=== PATIENT | male | born 1950 | race Caucasian/White ===

== ENCOUNTER → 2016-12-14 | Outpatient (REF) | payer MEDICARE, OTHER | END | disposition home or self-care (01) | LOC: M SFHCPLAZ 09:15 | PROVIDERS: ATTEND Family Medicine | DX: L08.9 Local infection of the skin and subcutaneous tissue, unspecified (principal) | CPT/HCPCS: 11100; 88305; G0463 ==

== ENCOUNTER → 2017-03-15 | Outpatient (CLI) | payer MEDICARE, OTHER ==
[2017-03-15 08:33] LABS: BASO % 0.5 % (0.0-1.0); EOS # 0.1 K/mm3 (0.0-0.50); EOS % 0.7 % (0.0-3.0); LARGE UNSTAINED CELL # 0.1 K/mm3 (0.0-0.4); LARGE UNSTAINED CELL % 0.9 % (0.0-4.0); LYMPH # 1.3 K/mm3 (1.5-4.5); MEAN CORPUSCULAR HEMOGLOBIN 29.2 pg (27.0-33.0); MEAN CORPUSCULAR HGB CONC 31.3 g/dl (32.0-36.5); MONO # 0.6 K/mm3 (0.0-0.8); MONO % 7.6 % (0.0-5.0); NEUTROPHILS # 6.1 K/mm3 (1.8-7.7); NEUTROPHILS % 75.2 % (36.0-66.0); PLATELET COUNT, AUTOMATED 264 k/mm3 (150-450); RED CELL DISTRIBUTION WIDTH 12.3 % (11.5-14.5); WHITE BLOOD COUNT 8.1 K/mm3 (4.0-10.0)
[2017-03-15 08:59] LABS: ALBUMIN 3.6 GM/DL (3.2-5.2); ALBUMIN/GLOBULIN RATIO 1.24 (1.00-1.93); ALKALINE PHOSPHATASE 49 U/L (45-117); ALT/SGPT 27 U/L (12-78); ANION GAP 7 MEQ/L (8-16); AST/SGOT 14 U/L (15-37); BILIRUBIN,TOTAL 0.4 MG/DL (0.2-1.0); BLOOD UREA NITROGEN 24 MG/DL (7-18); CALCIUM LEVEL 9.1 MG/DL (8.8-10.2); CARBON DIOXIDE LEVEL 26 MEQ/L (21-32); CHLORIDE LEVEL 105 MEQ/L (98-107); CHOLESTEROL LEVEL 209 MG/DL (<200); CREATININE FOR GFR 1.19 MG/DL (0.70-1.30); FERRITIN 41 NG/ML (26-388); GLOMERULAR FILTRATION RATE > 60.0 (>49); GLUCOSE, FASTING 97 MG/DL (80-110); PERCENT SATURATION 29.7 % (19.7-37.4); POTASSIUM SERUM 4.6 MEQ/L (3.5-5.1); SODIUM LEVEL 138 MEQ/L (136-145); TOTAL IRON BINDING CAPACITY 364 UG/DL (250-450); TOTAL PROTEIN 6.5 GM/DL (6.4-8.2); TRIGLYCERIDES LEVEL 89 MG/DL (<150)
[2017-03-15 10:18] LABS: VITAMIN B12 LEVEL 394 PG/ML (247-911)
== END ==
LOC: M LAB 07:27
PROVIDERS: ATTEND Family Medicine
DX: N18.2 Chronic kidney disease, stage 2 (mild) (principal); E78.5 Hyperlipidemia, unspecified; Z12.5 Encounter for screening for malignant neoplasm of prostate; D50.9 Iron deficiency anemia, unspecified
CPT/HCPCS: 36415; 80053; 80061; 82550; 82607; 82728; 83550; 84443; 85025; 86140; G0103

== ENCOUNTER → 2017-06-01 | Outpatient (CLI) | payer MEDICARE, OTHER ==
[~2017-06-01] MED LIST: ASPI81TA85 PO; LISI-538 PO; MULT1TAB10 PO; PRAV80TA PO
--- NOTE | 2017-06-01 11:20 | REP ---
Chest x-ray PA and lateral: 06/01/2017 Comparison PA chest with ribs 06/15/2013, CT chest 09/22/2010. Findings. Pulmonary nodule. Previous CT showed a few tiny nodules 4 mm or less in the right lung, these would be radiographically occult. The lungs are well inflated. CP angles sharply defined. There is no lateral pleural thickening, apical scarring or pneumothorax. Heart is not grossly enlarged. Epicardial fat pad along the left heart border as on previous CT enlarges the cardiac silhouette. There is no vascular redistribution or edema. The aorta is mildly tortuous and has calcification at the arch without aneurysm. Bony thorax shows no acute compression deformity. Impression: 1. No acute cardiopulmonary change. 2. No visible pulmonary nodule, mass or acute infiltrate, radiographically. If there are other interval studies and I am not aware of it may be helpful to compare to those. For following nodules as small as described in the 2010 CT it would require a CT to accomplish that. Signed by Kem Fuchs MD 06/01/2017 06:57 P
--- NOTE | 2017-06-01 12:20 | REP ---
LEFT ELBOW, FOUR VIEWS: HISTORY: Arthritis. Postoperative changes are present in the head of the radius. There is deformity of the radial head. Two metal screws are present. There is no acute fracture or dislocation. There is narrowing of the joint space. IMPRESSION: Postoperative change as described above. Signed by Blaise Dong MD 06/01/2017 12:25 P
== END ==
LOC: M RAD 10:01
PROVIDERS: ATTEND Family Medicine
DX: R91.1 Solitary pulmonary nodule (principal); M19.022 Primary osteoarthritis, left elbow

== ENCOUNTER 2017-07-23 10:53 | Outpatient (CLI) | payer MEDICARE, OTHER ==
[~2017-07-23] VITALS: Ht 185.4 cm; Wt 81.6 kg
[2017-07-23] MEDS ORDERED: NS 1,000 ML IV ONE (11:00)
[2017-07-23] MEDS ORDERED: PROPOFOL 200 MG/20 ML VIAL As Ordered ONE (11:13)
--- NOTE | 2017-07-23 11:48 | ROOR ---
Patient Name: Travis George Procedure Date: 07/23/2017 11:30 AM Date of : 1950 Age: 66 Room: [facility] Gender: Male Note Status: Finalized Procedure: Total Colonoscopy to Cecum Indications: Colon cancer screening in patient at increased risk: Family history of 1st-degree relative with colon polyps, Last colonoscopy: 2009 Providers: Antonio Johnson MD Referring MD: Kike Cowan MD Requesting Provider: Medicines: Monitored Anesthesia Care Complications: No immediate complications. Procedure: Pre-Anesthesia Assessment: - The heart rate, respiratory rate, oxygen saturations, blood pressure, adequacy of pulmonary ventilation, and response to care were monitored throughout the procedure. The Colonoscope was introduced through the anus and advanced to the cecum, identified by appendiceal orifice and ileocecal valve. The colonoscopy was performed without difficulty. The patient tolerated the procedure well. The quality of the bowel preparation was excellent. Findings: The perianal and digital rectal examinations were normal. Non-bleeding internal hemorrhoids were found during retroflexion. The hemorrhoids were small and Grade I (internal hemorrhoids that do not prolapse). No other significant abnormalities were identified in a careful examination of the remainder of the colon. The exam was otherwise without abnormality on direct and retroflexion views. Impression: - Non-bleeding internal hemorrhoids. - The examination was otherwise normal on direct and retroflexion views. - No specimens collected. - The exam was otherwise normal to the cecum. Recommendation: - Patient has a contact number available for emergencies. The signs and symptoms of potential delayed complications were discussed with the patient. Return to normal activities tomorrow. Written discharge instructions were provided to the patient. - High fiber diet. - Discharge patient to home. - Continue present medications. - Repeat colonoscopy in 5 years for screening purposes. - Return to referring physician. - The findings and recommendations were discussed with the patient's family. Antonio Johnson MD Antonio Johnson MD 07/23/2017 11:48:21 AM This report has been signed electronically. Number of Addenda: 0 Note Initiated On: 07/23/2017 11:30 AM Estimated Blood Loss: Estimated blood loss: none.
[2017-07-23 12:15] VITALS: BP 117/82
== END 2017-07-23 12:21 | disposition home or self-care (01) ==
LOC: M OPP 10:53
PROVIDERS: ATTEND Internal Medicine Gastroenterology
DX: Z12.11 Encounter for screening for malignant neoplasm of colon (principal); Z83.71 Family history of colonic polyps; K64.0 First degree hemorrhoids; K90.0 Celiac disease; I10 Essential (primary) hypertension; E78.5 Hyperlipidemia, unspecified; M19.90 Unspecified osteoarthritis, unspecified site; M25.60 Stiffness of unspecified joint, not elsewhere classified; N40.1 Benign prostatic hyperplasia with lower urinary tract symptoms; Z88.0 Allergy status to penicillin; Z79.82 Long term (current) use of aspirin; Z79.899 Other long term (current) drug therapy; Z80.0 Family history of malignant neoplasm of digestive organs

== ENCOUNTER → 2017-09-15 | Outpatient (CLI) | payer MEDICARE, OTHER ==
[2017-09-15 08:07] LABS: BASO % 0.5 % (0.0-1.0); EOS % 0.7 % (0.0-3.0); IMMATURE GRANULOCYTE % 0.5 % (0-0); LYMPH # 1.4 10^3/uL (1.5-4.5); LYMPH % 24.9 % (24.0-44.0); MEAN CORPUSCULAR HEMOGLOBIN 30.5 pg (27.0-33.0); MEAN CORPUSCULAR HGB CONC 33.3 g/dl (32.0-36.5); MEAN CORPUSCULAR VOLUME 91.9 fl (80.0-96.0); MONO # 0.5 10^3/uL (0.0-0.8); MONO % 9.8 % (0.0-5.0); NEUTROPHILS # 3.5 10^3/uL (1.8-7.7); NEUTROPHILS % 63.6 % (36.0-66.0); PLATELET COUNT, AUTOMATED 252 10^3/uL (150-450); RED CELL DISTRIBUTION WIDTH 12.3 % (11.5-14.5); WHITE BLOOD COUNT 5.5 10^3/uL (4.0-10.0)
[2017-09-15 08:39] LABS: ALBUMIN 3.7 GM/DL (3.2-5.2); ALBUMIN/GLOBULIN RATIO 1.42 (1.00-1.93); ALKALINE PHOSPHATASE 42 U/L (45-117); ALT/SGPT 28 U/L (12-78); ANION GAP 5 MEQ/L (8-16); AST/SGOT 16 U/L (7-37); BILIRUBIN,TOTAL 0.3 MG/DL (0.2-1.0); BLOOD UREA NITROGEN 25 MG/DL (7-18); CALCIUM LEVEL 9.1 MG/DL (8.8-10.2); CARBON DIOXIDE LEVEL 27 MEQ/L (21-32); CHLORIDE LEVEL 107 MEQ/L (98-107); CREATININE FOR GFR 1.22 MG/DL (0.70-1.30); GLOMERULAR FILTRATION RATE > 60.0 (>49); GLUCOSE, FASTING 94 MG/DL (80-110); POTASSIUM SERUM 4.7 MEQ/L (3.5-5.1); SODIUM LEVEL 139 MEQ/L (136-145); TOTAL PROTEIN 6.3 GM/DL (6.4-8.2)
== END ==
LOC: M LAB 07:20
PROVIDERS: ATTEND Family Medicine
DX: N18.2 Chronic kidney disease, stage 2 (mild) (principal); R73.01 Impaired fasting glucose; E55.9 Vitamin D deficiency, unspecified

== ENCOUNTER 2017-11-15 07:38 | Emergency (ER) | payer MEDICARE, OTHER ==
[2017-11-15 08:52] LABS: BASO % 0.2 % (0.0-1.0); EOS # 0.1 10^3/uL (0.0-0.50); HEMATOCRIT 45.4 % (42.0-52.0); HEMOGLOBIN 14.9 g/dl (14.0-18.0); IMMATURE GRANULOCYTE % 0.4 % (0-0); LYMPH # 1.6 10^3/uL (1.5-4.5); LYMPH % 19.4 % (24.0-44.0); MEAN CORPUSCULAR HGB CONC 32.8 g/dl (32.0-36.5); MEAN CORPUSCULAR VOLUME 91.5 fl (80.0-96.0); MONO # 0.8 10^3/uL (0.0-0.8); MONO % 9.4 % (0.0-5.0); NEUTROPHILS # 5.7 10^3/uL (1.8-7.7); NEUTROPHILS % 69.6 % (36.0-66.0); PLATELET COUNT, AUTOMATED 248 10^3/uL (150-450); RED BLOOD COUNT 4.96 10^6/uL (4.30-6.10); RED CELL DISTRIBUTION WIDTH 12.5 % (11.5-14.5); WHITE BLOOD COUNT 8.2 10^3/uL (4.0-10.0)
[2017-11-15 09:05] LABS: INR 0.94; PROTHROMBIN TIME 12.7 SECONDS (12.4-14.5)
[2017-11-15 09:06] LABS: PARTIAL THROMBOPLASTIN TIME 24.5 SECONDS (26.8-37.9)
[2017-11-15 09:23] LABS: ANION GAP 6 MEQ/L (8-16); BLOOD UREA NITROGEN 26 MG/DL (7-18); CALCIUM LEVEL 9.3 MG/DL (8.8-10.2); CARBON DIOXIDE LEVEL 28 MEQ/L (21-32); CHLORIDE LEVEL 106 MEQ/L (98-107); CREATININE FOR GFR 1.13 MG/DL (0.70-1.30); GLOMERULAR FILTRATION RATE > 60.0 (>49); GLUCOSE, FASTING 98 MG/DL (80-110); SODIUM LEVEL 140 MEQ/L (136-145)
== END 2017-11-15 13:57 | disposition home or self-care (01) ==
LOC: M ED 07:38
DX: R27.0 Ataxia, unspecified (principal); I10 Essential (primary) hypertension; K90.0 Celiac disease; N42.9 Disorder of prostate, unspecified; Z79.899 Other long term (current) drug therapy; Z79.82 Long term (current) use of aspirin; Z88.0 Allergy status to penicillin
CPT/HCPCS: 70551

== ENCOUNTER → 2018-03-18 | Outpatient (CLI) | payer MEDICARE, OTHER ==
[2018-03-18 08:03] LABS: BASO % 0.4 % (0.0-1.0); EOS # 0.1 10^3/uL (0.0-0.50); EOS % 0.6 % (0.0-3.0); HEMATOCRIT 43.9 % (42.0-52.0); HEMOGLOBIN 14.5 g/dl (13.5-17.5); IMMATURE GRANULOCYTE % 0.6 % (0-3.0); LYMPH # 1.2 10^3/uL (1.5-4.5); LYMPH % 13.3 % (24.0-44.0); MEAN CORPUSCULAR HEMOGLOBIN 30.1 pg (27.0-33.0); MEAN CORPUSCULAR VOLUME 91.1 fl (80.0-96.0); MONO # 0.8 10^3/uL (0.0-0.8); MONO % 8.8 % (0.0-5.0); NEUTROPHILS # 6.9 10^3/uL (1.8-7.7); NEUTROPHILS % 76.3 % (36.0-66.0); PLATELET COUNT, AUTOMATED 231 10^3/uL (150-450); RED BLOOD COUNT 4.82 10^6/uL (4.30-6.10); RED CELL DISTRIBUTION WIDTH 12.3 % (11.5-14.5); WHITE BLOOD COUNT 9.1 10^3/uL (4.0-10.0)
[2018-03-18 08:07] LABS: HEMATOCRIT 43.9 % (42.0-52.0)
[2018-03-18 08:35] LABS: ALBUMIN 3.7 GM/DL (3.2-5.2); ALBUMIN/GLOBULIN RATIO 1.23 (1.00-1.93); ALKALINE PHOSPHATASE 49 U/L (45-117); ALT/SGPT 26 U/L (12-78); ANION GAP 6 MEQ/L (8-16); AST/SGOT 19 U/L (7-37); BILIRUBIN,TOTAL 0.3 MG/DL (0.2-1.0); BLOOD UREA NITROGEN 32 MG/DL (7-18); CALCIUM LEVEL 8.7 MG/DL (8.8-10.2); CARBON DIOXIDE LEVEL 26 MEQ/L (21-32); CHLORIDE LEVEL 109 MEQ/L (98-107); FERRITIN 35 NG/ML (26-388); GLOMERULAR FILTRATION RATE > 60.0 (>49); GLUCOSE, FASTING 102 MG/DL (70-100); IRON (FE) 76 UG/DL (65-175); PERCENT SATURATION 20.9 % (19.7-50.0); POTASSIUM SERUM 5.1 MEQ/L (3.5-5.1); SODIUM LEVEL 141 MEQ/L (136-145); TOTAL IRON BINDING CAPACITY 364 UG/DL (250-450); TOTAL PROTEIN 6.7 GM/DL (6.4-8.2)
[2018-03-18 11:07] LABS: VITAMIN B12 LEVEL 454 PG/ML (247-911)
[2018-03-18 11:50] LABS: ESTIMATED AVERAGE GLUCOSE 134 MG/DL (60-110); HEMOGLOBIN A1c 6.3 %
[2018-03-18 12:05] LABS: PRETREATED FOLATE FOR RBCFOL 16.7 NG/ML; RBC FOLATE 798.9 NG/ML (280-791)
[2018-03-19 14:10] LABS: INSULIN LEVEL 10.2 uIU/mL (2.6-24.9)
[2018-03-22 13:21] LABS: ALBUMIN 4.27 GM/DL (3.29-5.55); ALBUMIN % 63.7 % (55.8-66.1); ALPHA-1-GLOBULIN % 2.8 % (2.9-4.9); ALPHA-1-GLOBULINS 0.19 GM/DL (0.17-0.41); ALPHA-2-GLOBULINS 0.67 GM/DL (0.42-0.99); BETA-1-GLOBULINS % 6.3 % (4.7-7.2); BETA-2-GLOBULINS % 4.8 % (3.2-6.5); GAMMA GLOBULIN % 12.4 % (11.1-18.8)
[2018-03-22 13:22] LABS: BETA-1-GLOBULINS 0.42 GM/DL (0.28-0.60); BETA-2-GLOBULINS 0.32 GM/DL (0.19-0.55); GAMMA GLOBULINS 0.83 GM/DL (0.65-1.58)
== END ==
LOC: M LAB 07:30
DX: N18.2 Chronic kidney disease, stage 2 (mild) (principal); R73.01 Impaired fasting glucose; K90.0 Celiac disease
CPT/HCPCS: 83525

== ENCOUNTER → 2018-08-17 | Outpatient (CLI) | payer MEDICARE, OTHER ==
[2018-08-17 08:34] LABS: ESTIMATED AVERAGE GLUCOSE 120 MG/DL (60-110); HEMOGLOBIN A1c 5.8 %
[2018-08-17 08:35] LABS: BASO % 0.3 % (0.0-1.0); EOS # 0.1 10^3/uL (0.0-0.50); EOS % 0.6 % (0.0-3.0); HEMATOCRIT 42.2 % (42.0-52.0); HEMOGLOBIN 13.9 g/dl (13.5-17.5); IMMATURE GRANULOCYTE % 0.3 % (0-3.0); LYMPH # 1.3 10^3/uL (1.5-4.5); LYMPH % 14.6 % (24.0-44.0); MEAN CORPUSCULAR HEMOGLOBIN 30.2 pg (27.0-33.0); MEAN CORPUSCULAR HGB CONC 32.9 g/dl (32.0-36.5); MEAN CORPUSCULAR VOLUME 91.7 fl (80.0-96.0); MONO # 0.8 10^3/uL (0.0-0.8); MONO % 9.4 % (0.0-5.0); NEUTROPHILS # 6.7 10^3/uL (1.8-7.7); NEUTROPHILS % 74.8 % (36.0-66.0); PLATELET COUNT, AUTOMATED 253 10^3/uL (150-450); RED CELL DISTRIBUTION WIDTH 12.5 % (11.5-14.5); RETIC HEMOGLOBIN EQUIVALENT 34.9 pg (24-36); RETICULOCYTE # 69.9 10^9/L (17-77); RETICULOCYTE % 1.5 % (0.5-1.5)
[2018-08-17 08:42] LABS: ALKALINE PHOSPHATASE 43 U/L (45-117); ALT/SGPT 26 U/L (12-78); ANION GAP 5 MEQ/L (8-16); AST/SGOT 17 U/L (7-37); BLOOD UREA NITROGEN 31 MG/DL (7-18); CALCIUM LEVEL 8.7 MG/DL (8.8-10.2); CARBON DIOXIDE LEVEL 28 MEQ/L (21-32); CHLORIDE LEVEL 108 MEQ/L (98-107); CPK CREATINE PHOSPHOKINASE 116 U/L (39-308); CREATININE FOR GFR 1.13 MG/DL (0.70-1.30); GLOMERULAR FILTRATION RATE > 60.0 (>49); GLUCOSE, FASTING 101 MG/DL (70-100); POTASSIUM SERUM 5.1 MEQ/L (3.5-5.1); SODIUM LEVEL 141 MEQ/L (136-145)
[2018-08-17 08:43] LABS: ALBUMIN 3.7 GM/DL (3.2-5.2); ALBUMIN/GLOBULIN RATIO 1.37 (1.00-1.93); BILIRUBIN,TOTAL 0.3 MG/DL (0.2-1.0); C REACTIVE PROTEIN QUANTITATIV < 0.30 MG/DL (0.00-0.30); MAGNESIUM LEVEL 2.2 MG/DL (1.8-2.4); PSA SCREENING 0.21 NG/ML (< 4.0); TOTAL PROTEIN 6.4 GM/DL (6.4-8.2)
[2018-08-18 15:46] LABS: INSULIN LEVEL 13.5 uIU/mL (2.6-24.9)
== END ==
LOC: M LAB 07:34
DX: N18.2 Chronic kidney disease, stage 2 (mild) (principal); Z79.899 Other long term (current) drug therapy; R73.01 Impaired fasting glucose; Z12.5 Encounter for screening for malignant neoplasm of prostate
CPT/HCPCS: 82550

== ENCOUNTER → 2019-08-14 | Outpatient (CLI) | payer MEDICARE, OTHER ==
[2019-08-14 08:13] LABS: BASO % 0.6 % (0.0-1.0); EOS % 0.6 % (0.0-3.0); HEMOGLOBIN 14.2 g/dl (13.5-17.5); LYMPH # 1.1 10^3/uL (1.5-5.0); LYMPH % 15.4 % (24.0-44.0); MEAN CORPUSCULAR HEMOGLOBIN 30.5 pg (27.0-33.0); MEAN CORPUSCULAR HGB CONC 32.3 g/dl (32.0-36.5); MEAN CORPUSCULAR VOLUME 94.4 fl (80.0-96.0); MONO # 0.6 10^3/uL (0.0-0.8); MONO % 8.6 % (0.0-5.0); NEUTROPHILS # 5.4 10^3/uL (1.5-8.5); NEUTROPHILS % 74.4 % (36.0-66.0); PLATELET COUNT, AUTOMATED 265 10^3/uL (150-450); RED BLOOD COUNT 4.66 10^6/uL (4.30-6.10); WHITE BLOOD COUNT 7.2 10^3/uL (4.0-10.0)
[2019-08-14 08:44] LABS: ALBUMIN 3.7 GM/DL (3.2-5.2); ALT/SGPT 26 U/L (12-78); BILIRUBIN,TOTAL 0.3 MG/DL (0.2-1.0); BLOOD UREA NITROGEN 21 MG/DL (7-18); CALCIUM LEVEL 9.2 MG/DL (8.8-10.2); CARBON DIOXIDE LEVEL 27 MEQ/L (21-32); CHLORIDE LEVEL 107 MEQ/L (98-107); CREATININE FOR GFR 1.24 MG/DL (0.70-1.30); FREE T4 0.86 NG/DL (0.76-1.46); GLOMERULAR FILTRATION RATE > 60.0 (>42); GLUCOSE, FASTING 103 MG/DL (70-100); POTASSIUM SERUM 4.7 MEQ/L (3.5-5.1); SODIUM LEVEL 139 MEQ/L (136-145)
== END ==
LOC: M LAB 07:25
PROVIDERS: ATTEND Family Medicine
DX: Z12.5 Encounter for screening for malignant neoplasm of prostate (principal); K90.0 Celiac disease; E78.5 Hyperlipidemia, unspecified; R73.01 Impaired fasting glucose
CPT/HCPCS: 36415; 80053; 83036; 83516; 84439; 84443; 85025; 85046; G0103

== ENCOUNTER → 2020-01-01 | Outpatient (CLI) | payer MEDICARE, OTHER ==
[2020-01-01 08:18] LABS: APPEARANCE, URINE CLEAR (CLEAR); BACTERIA, URINE AUTO NEGATIVE (NEGATIVE); BASO # 0.1 10^3/uL (0.0-0.2); BASO % 0.8 % (0.0-1.0); BILIRUBIN, URINE AUTO NEGATIVE (NEGATIVE); BLOOD, URINE BLOOD NEGATIVE (NEGATIVE); COLOR, URINE YELLOW (YELLOW); EOS # 0.1 10^3/uL (0.0-0.5); EOS % 1.3 % (0.0-3.0); GLUCOSE, URINE (UA) AUTO NEGATIVE (NEGATIVE); HEMATOCRIT 43.6 % (42.0-52.0); HEMOGLOBIN 14.1 g/dl (13.5-17.5); KETONE, URINE AUTO NEGATIVE (NEGATIVE); LEUKOCYTE ESTERASE, URINE AUTO NEGATIVE (NEGATIVE); LYMPH # 1.7 10^3/uL (1.5-5.0); LYMPH % 23.1 % (24.0-44.0); MEAN CORPUSCULAR HGB CONC 32.3 g/dl (32.0-36.5); MEAN CORPUSCULAR VOLUME 92.8 fl (80.0-96.0); MONO # 0.8 10^3/uL (0.0-0.8); MUCUS, URINE SMALL (NEGATIVE); NEUTROPHILS # 4.5 10^3/uL (1.5-8.5); NEUTROPHILS % 63.2 % (36.0-66.0); NITRITE, URINE AUTO NEGATIVE (NEGATIVE); PLATELET COUNT, AUTOMATED 270 10^3/uL (150-450); PROTEIN, URINE AUTO NEGATIVE (NEGATIVE); RBC, URINE AUTO 10 /HPF (0-3); SPECIFIC GRAVITY URINE AUTO 1.017 (1.002-1.035); SQUAMOUS EPITHELIAL CELL UR AU 0 /HPF (0-6); UROBILINOGEN, URINE AUTO 0.2 mg/dL (0.0-2.0); WBC, URINE AUTO 1 /HPF (0-3); WHITE BLOOD COUNT 7.2 10^3/uL (4.0-10.0)
[2020-01-01 08:47] LABS: ALBUMIN 3.7 GM/DL (3.2-5.2); ALT/SGPT 27 U/L (12-78); BILIRUBIN,TOTAL 0.4 MG/DL (0.2-1.0); BLOOD UREA NITROGEN 24 MG/DL (7-18); CALCIUM LEVEL 9.2 MG/DL (8.8-10.2); CARBON DIOXIDE LEVEL 29 MEQ/L (21-32); CHLORIDE LEVEL 107 MEQ/L (98-107); CREATININE FOR GFR 1.15 MG/DL (0.70-1.30); GLOMERULAR FILTRATION RATE > 60.0 (>42); GLUCOSE, FASTING 102 MG/DL (70-100); POTASSIUM SERUM 5.4 MEQ/L (3.5-5.1); SODIUM LEVEL 139 MEQ/L (136-145); TOTAL PROTEIN 6.7 GM/DL (6.4-8.2)
[2020-01-01 08:56] LABS: MALB URINE SIEMENS 7.2 MG/L; MAU/CREAT RATIO 7.1 MCG/MG (0.0-30.0)
[2020-01-02 11:37] LABS: ALBUMIN 4.13 GM/DL (3.29-5.55); ALBUMIN % 61.7 % (55.8-66.1); ALPHA-1-GLOBULIN % 3.4 % (2.9-4.9); ALPHA-1-GLOBULINS 0.23 GM/DL (0.17-0.41); ALPHA-2-GLOBULINS 0.72 GM/DL (0.42-0.99); ALPHA-2-GLOBULINS % 10.7 % (7.1-11.8); BETA-1-GLOBULINS 0.43 GM/DL (0.28-0.60); BETA-1-GLOBULINS % 6.4 % (4.7-7.2); BETA-2-GLOBULINS 0.32 GM/DL (0.19-0.55); BETA-2-GLOBULINS % 4.8 % (3.2-6.5); GAMMA GLOBULINS 0.87 GM/DL (0.65-1.58)
== END ==
LOC: M LAB 07:30
PROVIDERS: ATTEND Family Medicine
DX: D75.89 Other specified diseases of blood and blood-forming organs (principal); I10 Essential (primary) hypertension; R73.01 Impaired fasting glucose

== ENCOUNTER → 2020-05-14 | Outpatient (CLI) | payer MEDICARE, OTHER ==
[~2020-05-14] MED LIST changes: -ASPI81TA85 PO; +ASPI81TA86 PO
[2020-05-14 08:17] LABS: ALBUMIN 3.6 GM/DL (3.2-5.2); ALT/SGPT 23 U/L (12-78); BILIRUBIN,TOTAL 0.3 MG/DL (0.2-1.0); BLOOD UREA NITROGEN 29 MG/DL (7-18); C REACTIVE PROTEIN QUANTITATIV < 0.30 MG/DL (0.00-0.30); CARBON DIOXIDE LEVEL 26 MEQ/L (21-32); CHLORIDE LEVEL 109 MEQ/L (98-107); CHOLESTEROL LEVEL 176 MG/DL (<200); CREATININE FOR GFR 1.11 MG/DL (0.70-1.30); FREE T4 1.01 NG/DL (0.76-1.46); GLOMERULAR FILTRATION RATE > 60.0 (>42); GLUCOSE, FASTING 95 MG/DL (70-100); HDL CHOLESTEROL 64 MG/DL (>40); LDL CHOLESTEROL 102 MG/DL (<100); NON-HDL-C 112 MG/DL; POTASSIUM SERUM 4.8 MEQ/L (3.5-5.1); SODIUM LEVEL 140 MEQ/L (136-145); THYROID STIMULATING HORMONE 0.677 uIU/ML (0.358-3.740); TOTAL PROTEIN 6.8 GM/DL (6.4-8.2); TRIGLYCERIDES LEVEL 51 MG/DL (<150)
== END ==
LOC: M LAB 06:58
PROVIDERS: ATTEND Family Medicine
DX: Z12.5 Encounter for screening for malignant neoplasm of prostate (principal); R73.01 Impaired fasting glucose; E78.5 Hyperlipidemia, unspecified
CPT/HCPCS: 36415; 80053; 80061; 83525; 84439; 84443; 86140; G0103

== ENCOUNTER → 2020-11-04 | Outpatient (CLI) | payer MEDICARE, OTHER ==
[2020-11-04 09:09] LABS: BASO # 0.1 10^3/uL (0.0-0.2); BASO % 0.8 % (0.0-1.0); EOS # 0.1 10^3/uL (0.0-0.5); EOS % 0.9 % (0.0-3.0); HEMATOCRIT 43.7 % (42.0-52.0); HEMOGLOBIN 13.9 g/dl (13.5-17.5); LYMPH # 1.4 10^3/uL (1.5-5.0); LYMPH % 20.9 % (24.0-44.0); MEAN CORPUSCULAR HEMOGLOBIN 29.1 pg (27.0-33.0); MEAN CORPUSCULAR HGB CONC 31.8 g/dl (32.0-36.5); MEAN CORPUSCULAR VOLUME 91.6 fl (80.0-96.0); MONO # 0.7 10^3/uL (0.0-0.8); MONO % 10.4 % (0.0-5.0); NEUTROPHILS # 4.4 10^3/uL (1.5-8.5); NEUTROPHILS % 66.5 % (36.0-66.0); PLATELET COUNT, AUTOMATED 270 10^3/uL (150-450); RED BLOOD COUNT 4.77 10^6/uL (4.30-6.10); WHITE BLOOD COUNT 6.6 10^3/uL (4.0-10.0)
[2020-11-04 09:19] LABS: ALBUMIN 3.7 GM/DL (3.2-5.2); ALT/SGPT 26 U/L (12-78); BILIRUBIN,TOTAL 0.4 MG/DL (0.2-1.0); BLOOD UREA NITROGEN 21 MG/DL (7-18); CARBON DIOXIDE LEVEL 28 MEQ/L (21-32); CHLORIDE LEVEL 106 MEQ/L (98-107); CREATININE FOR GFR 1.24 MG/DL (0.70-1.30); GLOMERULAR FILTRATION RATE > 60.0 (>42); GLUCOSE, FASTING 93 MG/DL (70-100); POTASSIUM SERUM 4.7 MEQ/L (3.5-5.1); SODIUM LEVEL 139 MEQ/L (136-145); TOTAL PROTEIN 6.7 GM/DL (6.4-8.2)
[2020-11-04 09:27] LABS: CREATININE, URINE 87.2 MG/DL; MALB URINE SIEMENS 6.9 MG/L; MAU/CREAT RATIO 7.9 MCG/MG (0.0-30.0)
[2020-11-04 10:36] LABS: PTH INTACT 28.6 PG/ML (18.5-88.0); TOTAL 25(OH) VITAMIN D 26.4 NG/ML (30.0-100.0)
[2020-11-04 10:37] LABS: VITAMIN B12 LEVEL 442 PG/ML (247-911)
[2020-11-04 10:58] LABS: HEMOGLOBIN A1c 5.5 %
== END ==
LOC: M LAB 07:23
PROVIDERS: ATTEND Family Medicine
DX: R73.01 Impaired fasting glucose (principal); N18.2 Chronic kidney disease, stage 2 (mild); D75.89 Other specified diseases of blood and blood-forming organs; Z79.899 Other long term (current) drug therapy

== ENCOUNTER → 2021-04-14 | Outpatient (CLI) | payer MEDICARE, OTHER ==
[~2021-04-14] MED LIST changes: -LISI-538 PO; +LISI20TA33 PO
[2021-04-14 10:11] LABS: HEMOGLOBIN A1c 5.7 %
[2021-04-14 10:12] LABS: ALBUMIN 3.8 GM/DL (3.2-5.2); ALT/SGPT 28 U/L (12-78); BILIRUBIN,TOTAL 0.3 MG/DL (0.2-1.0); BLOOD UREA NITROGEN 27 MG/DL (7-18); CALCIUM LEVEL 9.7 MG/DL (8.8-10.2); CARBON DIOXIDE LEVEL 26 MEQ/L (21-32); CHLORIDE LEVEL 106 MEQ/L (98-107); CHOLESTEROL LEVEL 193 MG/DL (<200); CHOLESTEROL RISK RATIO 3.112 (<5); CPK CREATINE PHOSPHOKINASE 86 U/L (39-308); CREATININE FOR GFR 1.25 MG/DL (0.70-1.30); FREE T4 1.05 NG/DL (0.76-1.46); GLOMERULAR FILTRATION RATE > 60.0 (>42); GLUCOSE, FASTING 85 MG/DL (70-100); HDL CHOLESTEROL 62 MG/DL (>40); LDL CHOLESTEROL 119 MG/DL (<100); NON-HDL-C 131 MG/DL; POTASSIUM SERUM 5.2 MEQ/L (3.5-5.1); SODIUM LEVEL 137 MEQ/L (136-145); THYROID STIMULATING HORMONE 0.597 uIU/ML (0.358-3.740); TOTAL PROTEIN 6.8 GM/DL (6.4-8.2); TRIGLYCERIDES LEVEL 59 MG/DL (<150)
== END ==
LOC: M LAB 08:30
PROVIDERS: ATTEND Family Medicine
DX: R73.01 Impaired fasting glucose (principal); E78.5 Hyperlipidemia, unspecified; Z12.5 Encounter for screening for malignant neoplasm of prostate
CPT/HCPCS: 36415; 80053; 80061; 82550; 83036; 83525; 84439; 84443; 86140; G0103

== ENCOUNTER → 2021-09-01 | Outpatient (CLI) | payer MEDICARE, OTHER ==
[2021-09-01 12:09] LABS: BASO # 0.1 10^3/uL (0.0-0.2); BASO % 0.7 % (0.0-1.0); EOS # 0.1 10^3/uL (0.0-0.5); EOS % 1.6 % (0.0-3.0); HEMATOCRIT 43.8 % (42.0-52.0); HEMOGLOBIN 14.4 g/dl (13.5-17.5); LYMPH # 1.7 10^3/uL (1.5-5.0); LYMPH % 23.7 % (24.0-44.0); MEAN CORPUSCULAR HEMOGLOBIN 30.8 pg (27.0-33.0); MEAN CORPUSCULAR HGB CONC 32.9 g/dl (32.0-36.5); MEAN CORPUSCULAR VOLUME 93.8 fl (80.0-96.0); MONO # 0.8 10^3/uL (0.0-0.8); MONO % 11.3 % (2.0-8.0); NEUTROPHILS # 4.4 10^3/uL (1.5-8.5); NEUTROPHILS % 62.4 % (36.0-66.0); PLATELET COUNT, AUTOMATED 254 10^3/uL (150-450); RED BLOOD COUNT 4.67 10^6/uL (4.30-6.10)
[2021-09-01 12:23] LABS: INR 0.96; PARTIAL THROMBOPLASTIN TIME 24.5 SECONDS (25.9-37.0); PROTHROMBIN TIME 13.2 SECONDS (12.7-14.5)
[2021-09-01 12:46] LABS: ALBUMIN 3.7 GM/DL (3.2-5.2); BILIRUBIN,TOTAL 0.2 MG/DL (0.2-1.0); CALCIUM LEVEL 9.4 MG/DL (8.8-10.2); CREATININE FOR GFR 1.3 MG/DL (0.70-1.30); GLOMERULAR FILTRATION RATE 57.8 (>42); POTASSIUM SERUM 4.8 MEQ/L (3.5-5.1)
[2021-09-01 12:51] LABS: MAU/CREAT RATIO 7.6 MCG/MG (0.0-30.0)
[2021-09-01 12:54] LABS: TOTAL 25(OH) VITAMIN D 37.8 NG/ML (30.0-100.0)
[2021-09-01 12:55] LABS: PTH INTACT 51.2 PG/ML (18.5-88.0)
[2021-09-01 13:12] LABS: HEMOGLOBIN A1c 5.7 %
== END ==
LOC: M LAB 11:31
PROVIDERS: ATTEND Family Medicine
DX: E55.9 Vitamin D deficiency, unspecified (principal); D75.89 Other specified diseases of blood and blood-forming organs; R73.01 Impaired fasting glucose; K90.0 Celiac disease

== ENCOUNTER → 2021-09-13 | Outpatient (CLI) | payer MEDICARE, OTHER ==
[~2021-09-13] MED LIST changes: +BAYE81TA10 PO; +D3 H2000 PO; +METF-838 PO; +PRAV80TA2 PO
== END ==
LOC: M LABSMTC 09:59
PROVIDERS: ATTEND Anesthesiology
DX: Z01.812 Encounter for preprocedural laboratory examination (principal); Z20.822 Contact with and (suspected) exposure to COVID-19

== ENCOUNTER 2021-09-18 06:54 | Day surgery (SDC) | payer MEDICARE, OTHER ==
[~2021-09-18] VITALS: Ht 185.4 cm; Wt 81.2 kg
[~2021-09-18 06:54] MED LIST changes: +CYCLOPENTOLATE 1% OPHTH SOLN 2 ML BTL OS SCH; +DUOVISC (0.50ML VISCOAT/0.85ML PROVISC) OPHTH KIT As Ordered ONE; +FLURBIPROFEN 0.03% OPHTH SOLN 2.5 ML OS SCH; +LIDOCAINE 1% SDV 5ML VIAL As Ordered ONE; +MAXITROL OPHTH SUSP 5 ML As Ordered ONE; +PHENYLEPHRINE 2.5% OPHTH SOL 2ML OS SCH; +TETRACAINE 0.5% OPHTH SOLN 4ML OS SCH; +TOBRADEX OPHTH SUSP 2.5 ML As Ordered ONE
--- OUTSIDE RECORDS SUMMARY | 2021-09-18 06:58 | CCD ---
Author Author [facility] Organization [facility] Address Unknown Phone Unavailable Care Team Providers Care Team Primary Care Physician Name Role Phone Kike Cowan Unavailable PROBLEMS Type Condition ICD9-CM Code [id number] Code Onset Dates Condition S tatus W/U Status Risk SNOMED Code Notes Problem ED (erectile dysfunction) N52.9 Active confirmed 882338242 Problem CKD (chronic kidney disease) stage 2, GFR 60-89 ml/min N18.2 Active confirmed 276093999 Problem Hypertension I10 Active confirmed 9097905 3 Problem Hyperlipidemia E78.5 Active confirmed 90411 004 Problem Colon cancer screening Z12.11 Active confirmed 807571841 Problem FH: colon cancer Z80.0 Active confirmed 312 422620 Problem Celiac disease K90.0 Active confirmed 41861 1005 Problem Macrocytosis D75.89 Active confirmed 0427003 00 Problem IFG (impaired fasting glucose) R73.01 Active confir med 724596150 Problem Prostate cancer screening Z12.5 Active confirmed 959253130 Problem Vitamin D deficiency E55.9 Active confirmed 48299900 Problem Pulmonary nodule R91.1 Active confirmed 309 819386 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 Active confirmed 439 838280 ALLERGIES Allergen (clinical drug ingredient) Drug/Non Drug Allergy do cumented on EMR Reaction Allergy Type Onset Date Status Penicillin (For Allergies Use Only) Nausea/Vomiting Drug A llergy Active ENCOUNTERS from 1950 to 2021-09-05 Encounter Location Date Provider Diagnosis [facility] [phone] [place] [address] Sep, Kike Cowan Macrocytosis D75.89 ; Preope rative clearance Z01.818 ; IFG (impaired fasting glucose) R73.01 ; CKD (chronic kidney disease) stage 2, GFR 60-89 ml/min N18.2 ; Pulmonary nodule R91.1 ; 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 ; Vitamin D deficiency E55.9 ; Hyperlipidemia E78.5 ; FH: colon cancer Z80.0 ; Hypertension I10 ; ED (erectile dysfunction) N52.9 ; Celiac disease K90.0 ; Prostate cancer screening Z12.5 and Colon cancer screening Z12.11 IMMUNIZATIONS Vaccine Route Administration Date Status Influenza 18 yrs & older Flublok IM Intramuscular Aug 17, 2019 Administered Influenza 18 yrs & older Flublok IM Intramuscular Aug 23, 2018 Administered Influenza (High Dose 65 & up) IM Intramuscular Oct 13, 2016 A dministered Pneumococcal 0.5mL Prevnar 13 IM Intramuscular Sep 20, 2017 A dministered SOCIAL HISTORY Tobacco Use: Social History Observation Description Date Details (start date - stop date) Never Smoker Sex Assigned At : Social History Observation Description Sex Assigned At Unknown Education: Question Answer Notes Level of Education: College Audit Question Answer Notes Total Score: 3 Interpretation: Alcohol Education Language: Question Answer Notes Languages spoken: Faroese Church: Question Answer Notes Church No congregation beliefs that would impact health care. Sexual Hx: Question Answer Notes Had sex in the last 12 months (vaginal, oral, or anal)? Yes Have you ever had an STD? No with Women only Use protection? No Drug and Alcohol Question Answer Notes Total Score: 0 Interpretation: No problems reported Alcohol Screening: Question Answer Notes Did you have a drink containing alcohol in the past year? Ye s Points 3 Interpretation Negative How often did you have six or more drinks on one occas ion in the past year? Less than monthly (1 point) How many drinks did you have on a typica l day when you were drinking in the past year? 3 or 4 (1 point) How often did you have a drink containing alcohol in t he past year? Monthly or less (1 point) Tobacco Use: Question Answer Notes Are you a: never smoker REASON FOR REFERRAL No Information VITAL SIGNS Weight 177.6 lbs Sep, Weight-kg 80.56 kg Sep, Height 73 in Sep, BMI 23.43 kg/m2 Sep, Heart Rate 74 /min Sep, Respiratory Rate 18 /min Sep, Temperature 98.2 degrees Fahrenheit Sep, Oximetry 98% Sep, Blood pressure systolic 120 mm Hg Sep, Blood pressure diastolic 68 mm Hg Sep, MEDICATIONS Medication SIG (Take, Route, Frequency, Duration) Notes Start Da te End Date Status metFORMIN HCl ER 500 mg 2 tablets Orally every morning Active Multivitamins OTC 1 tablet Orally Once a day Active Cholecalciferol 50 MCG (1999) 1 capsule Orally Once a day for 90 day(s) Active Aspir-81 81 MG 1 tablet Orally Once a day Active Lisinopril 20 mg 1 tablet Orally Once a day for 90 day(s) Active Pravastatin Sodium 80 mg TAKE 1 TABLET AT BEDTIME Active metFORMIN HCl ER 500 MG 2 tablets Orally every morning for 90 day(s) Active Pravastatin Sodium 80 MG TAKE 1 TABLET AT BEDTIME Active PROCEDURES from 1950 to 2021-09-05 Procedure Date Ordered Result Body Site ELECTROCARDIOGRAM, COMPLETE EKG 2021-09-01 N/A RESULTS Component Value Reference Range NT-PRO BNP Reviewed date:09/01/2021 13:02:17 Interpretation: Performing Lab:[facility] [address] [address] , ,[place] [id number] NT-PRO BNP 41 <125 CBC with Differential Reviewed date:09/01/2021 13:02:36 Interpretation: Performing Lab:[facility], [facility] [address] [address] , ,[place] [address] WHITE BLOOD COUNT 7.0 4.0-10.0 RED BLOOD COUNT 4.67 4.30-6.10 HEMOGLOBIN 14.4 13.5-17.5 HEMATOCRIT 43.8 42.0-52.0 MEAN CORPUSCULAR VOLUME 93.8 80.0-96.0 MEAN CORPUSCULAR HEMOGLOBIN 30.8 27.0-33.0 MEAN CORPUSCULAR HGB CONC 32.9 32.0-36.5 RED CELL DISTRIBUTION WIDTH 12.5 11.5-14.5 PLATELET COUNT, AUTOMATED 254 150-450 NEUTROPHILS % 62.4 36.0-66.0 LYMPH % 23.7 24.0-44.0 MONO % 11.3 2.0-8.0 EOS % 1.6 0.0-3.0 BASO % 0.7 0.0-1.0 NEUTROPHILS # 4.4 1.5-8.5 LYMPH # 1.7 1.5-5.0 MONO # 0.8 0.0-0.8 EOS # 0.1 0.0-0.5 BASO # 0.1 0.0-0.2 Comprehensive Metabolic Profile (CMP) Reviewed date:09/01/2021 13:02:24 Interpretation: Performing Lab:[facility] [address] [address] , ,[facility] GLUCOSE, FASTING 93 70-100 BLOOD UREA NITROGEN 25 7-18 CREATININE FOR GFR 1.30 0.70-1.30 GLOMERULAR FILTRATION RATE 57.8 >42 SODIUM LEVEL 137 136-145 POTASSIUM SERUM 4.8 3.5-5.1 CHLORIDE LEVEL 107 98-107 CARBON DIOXIDE LEVEL 29 21-32 CALCIUM LEVEL 9.4 8.8-10.2 AST/SGOT 19 7-37 ALT/SGPT 29 12-78 ALKALINE PHOSPHATASE 48 45-117 BILIRUBIN,TOTAL 0.2 0.2-1.0 TOTAL PROTEIN 7.0 6.4-8.2 ALBUMIN 3.7 3.2-5.2 ALBUMIN/GLOBULIN RATIO 1.1 FERRITIN Reviewed date:09/01/2021 13:02:19 Interpretation: Performing Lab:[facility] [address] [address] , ,[place] [address] FERRITIN 60 26-388 HEMOGLOBIN A1c Reviewed date:09/01/2021 13:35:32 Interpretation: Performing Lab:[facility] [address] [address] , ,[place] [address] HEMOGLOBIN A1c 5.7 ESTIMATED AVERAGE GLUCOSE 117 60-110 PT & APTT Reviewed date:09/01/2021 13:02:42 Interpretation: Performing Lab:[facility] [address] [address] , ,[place] [address] PROTHROMBIN TIME 13.2 12.7-14.5 INR 0.96 PARTIAL THROMBOPLASTIN TIME 24.5 25.9-37.0 PTH INTACT Reviewed date:09/01/2021 13:02:27 Interpretation: Performing Lab:[facility] [address] [address] , ,[place] [address] PTH INTACT 51.2 18.5-88.0 MICROALBUMIN RANDOM Reviewed date:09/01/2021 13:02:31 Interpretation: Performing Lab:[facility] [address] [place] [address] , ,[facility] CREATININE, URINE 170.0 MALB URINE SIEMENS 13.0 CESAR/CREAT RATIO 7.6 0.0-30.0 VITAMIN D 25-HYDROXY Reviewed date:09/01/2021 13:02:39 Interpretation: Performing Lab:[facility] [address] [address] , ,[place] [address] TOTAL 25(OH) VITAMIN D 37.8 30.0-100.0 VITAMIN B12 LEVEL Reviewed date:09/01/2021 13:02:15 Interpretation: Performing Lab:[facility] [address] [address] , ,[place] [address] VITAMIN B12 LEVEL 508 247-911 INSULIN LEVEL Reviewed date:09/02/2021 11:48:18 Interpretation: Performing Lab:[facility], [facility] [address] [facility] [address] , ,[place] [address] INSULIN LEVEL 9.1 2.6-24.9 REASON FOR VISIT Pre op clearance-Cataract OS-09/18/21-[facility]-Dr. Hanson-Klaudia, Jeannette @ [phone] fax # [phone] DX: H25.12 MEDICAL (GENERAL) HISTORY Type Description Date Medical History hypertension, essential Medical History DJD LS spine Medical History non alcoholic fatty liver di sease-June 2008 normal workup, May 2008 normal ultrasound Medical History microscopic hematuria/right hydronephrosis, hydroureter-follows with Dr. De Medical History impaired fasting glucose Medical History gluten enteropathy ho of sec ondary iron deficiency and B12 deficiency Medical History hyperlipidemia 2B Medical History probable CAD, PDA distributi on by November 2004 TST-patient refuses repeat Medical History chronic kidney disease stage II-September 2010 normal renal ultrasound bilateral Medical History right 4 mm pulmonary nodule s stable by September 2010 CT since December 2008 Medical History possible nephrolithiasis pas sed October 2011-October [address] abdomen/pelvis stone protocol Medical History R medial clavicular head enl argment by 06/2013 xray-similar to 09/2010 CT chest Medical History positional dizziness lasting ~3D, favor vestibular neuritis- 11/2017 MRI s-minimal volume loss, normal CBCD, CMP Surgical History bladder biopsy 2008 Surgical History L elbow surgery 1989 Surgical History EGD/acuyzqnxtzq-Ddwnupcmy-kg all hiatal hernia, decreased folds in entire duodenum and flattened mucosa consistent with celiac disease confirmed by biopsy March 2010 Surgical History button vaporization of prost ate-Aislinn, post-op orthostatic syncope c removal of catheter 12/2012 Surgical History urethroplasty [address] icture ? catheter qypranb-Wrlvhb-IHQ 07/28/13 Surgical History nptmsfgfemx-hikszl-H 07/2017 Hospitalization History as above Goals Section No Information Health Concerns No Information MEDICAL EQUIPMENT No Information MENTAL STATUS No Information FUNCTIONAL STATUS No Information ASSESSMENTS Encounter Date Diagnosis Assessment Notes Treatment Notes Treatm ent Clinical Notes Sep, Macrocytosis (ICD-10 - D75.89) 12/2019 14.1, 93 08/2019 14.2, 94, r35/1.4 08/2018 13.9, 92, CHr 35 03/2018 14.5, 91, 21%, 35 s supplement 11/04/20 442 03/2018 454 03/2017 394 05/2016 B12 440 s supplement (h/o deficiency c active celiac) 03/2018 RBC folate 799 12/2019 normal SPEP, sIFE Sep, Preoperative clearance (ICD-10 - Z01.818) On 09/01/21 the patient had a stable CBCD, CMP and PT/APTT. On 09/01/21 the patient's EKG revealed normal sinus rhythm at 60 beats per minute c LAE, LVH voltages, normal axis and no repolarization abnormality similar to 11/15/17 EKG. On the AM of the surgery, the patient will take lisinopril with a sip of water. The patient will hold aspirin and ANY NSAID for five (5) days prior to surgery. The patient is currently medically optimized for the above surgery. By the modified RCRI, the patient's 30 day MACE risk is 4%. The patient wishes to assume this risk and proceed with the above surgery. Sep, IFG (impaired fasting glucose) (ICD-10 - R73.01) mother c T2ID, son T1DM son c T1DM; otherwise no DM in 1DR 04/14/21 5.7 (85, 8) 11/04/20 5.5 (93, 15) 12/2019 6 (102, 13) 08/2019 6.0; therefore, increased to 1000 XR 01/2019 5.9 c ADELINE-IR (96, 14); therefore, + met XR 500 qAM 08/2018 5.8 c ADELINE-IR 4 (101, 14) 03/2018 6.3; therefore, attempt ADA diet (dc 6 cookies daily) 09/2017 6.1 12/2015 6.0 06/2014 6.0 09/2013 5.6 11/2012 6.1 04/2012 6.01 November 2011 A1c stable 5.7 11/04/20 8 09/2017 7 04/2013 10 November 2011 CESAR/creatinine of 6 Sep, CKD (chronic kidney disease) stage 2, GFR 60-89 ml/min (ICD-10 - N18.2) 04/14/21 27/1.3, 5.2 08/2019 21/1.2, 4.7 03/2018 32/1.2, 5.1 08/2018 31/1.1, 5.1, 2.2 09/2017 25/1.2, 4.7 06/2014 27/1.3, 4.6 06/2011 stable at 29/1.2 hgb as per celiac PTH as per vitamin D Sep, Pulmonary nodule (ICD-10 - R91.1) low risk patient-no lung cancer in 1DR, non-smoker 09/2010 CT chest stable R sided nodules (4, 4 and 2 mm) cw 12/2008 CT Sep, Elbow arthritis (ICD-10 - M19.029) Stable on home PT Contingency: home ROM, RR previous L open fracture c repair 1989Sep, Vitamin D deficiency (ICD-10 - E55.9) 11/04/20 26, 9, 29; therefore, + D3 2K 01/2019 36, 8.8, 49 09/2017 37, 9.1, 34 10/2016 vitamin D 33, 8.7, PTH 55 on MVI Sep, Hyperlipidemia (ICD-10 - E78.5) Patient takes pravastatin 80 qAM to remember taking med 04/14/21 119/62/59, 86, 0.3 05/14/20 102/64/51, <0.3 01/2019 109/62/52 on prava 08/2018 116, <0.3 03/2017 125/66/89, 82, <0.3 05/2016 110/65/66 06/2015 117/72/74, CPK 136 on pravastatin 80 qAM 11/2011 lipids 121/59/December lipids 105/58/35 04/14/21 0.6, 1.1 08/2019 1.1, 0.9 03/2017 0.7 06/2015 0.8 04/2013 0.8 11/2011 TSH 0.5 Sep, FH: colon cancer (ICD-10 - Z80.0) repeat colon 07/2022-W 2 2DR c colon cancer and brother c large recurrent aggressive polyp requring colectomy Sep, Hypertension (ICD-10 - I10) Good control on lisin 20 qAM K/Mg as per CKD 04/2013 held lisinopril 20 qd while on Rapaflo 8 qd given symptomatic SBPs in 90s 01/2012 lisinopril increased 5 to 20 qd (baseline dose) since off Emilia 11/2012 SB 52 bpm, LVH similar to 03/2008 EKG Sep, ED (erectile dysfunction) (ICD-10 - N52.9) No benefit c Cialis/Viagra/Levitra at maximal dosages Patient defers surgical/injectible options 12/2015 given Viagra 100 QD prn failure AGAIN; changed again to Levitra 20 s benefit 06/2015 Levitra 20 trial but refused by i 12/2014 Viagra 100 s ANY benefit Contingency: buproprion given at least 1/2 problem is decreased libido Worsened p 07/2013 urethroplasty 06/2015 595 04/2013 testosterone 542 06/2015 prolactin 18 Sep, Celiac disease (ICD-10 - K90.0) Patient attempting to maintain gluten-free diet 07/2019 - TTG 10/2016 - TTG Sep, Prostate cancer screening (ICD-10 - Z12.5) Patient s LUTs x nocturia 0-1 04/14/21 0.3 05/14/20 0.3 08/2019 0.4 08/2018 0.2 03/2017 0.3 05/2016 PSA stable at 0.2 Sep, Colon cancer screening (ICD-10 - Z12.11) repeat colon as per PLAN OF TREATMENT Medication Medication Name Sig Start Date Stop Date metFORMIN HCl ER 500 MG 2 tablets Orally every morning for 90 da y(s) Lisinopril 20 mg 1 tablet Orally Once a day for 90 day(s) Pravastatin Sodium 80 MG TAKE 1 TABLET AT BEDTIME Cholecalciferol 50 MCG (1999 UT) 1 capsule Orally Once a day for 90 day(s) Aspir-81 81 MG 1 tablet Orally Once a day Treatment Notes Assessment Notes Clinical Notes Colon cancer screening repeat colon as p er Macrocytosis 12/2019 14.1, 9310/ 19 14.2, 94, r35/1.410 13.9, 92, CHr 355 14.5, 91, 21%, 35 s supplement11/04/20 4425/2017 4545/2016 3947 B12 440 s supplement (h/o deficiency c active celiac)03/2018 RBC folate 7993/2019 normal SPEP, sIFE Prostate cancer screening Patient s LUTs x nocturia 0-16 0.37/ 0.310/2018 0.410 0. 0. PSA stable at 0.2 Preoperative clearance On 09/01/21 the pa rossy had a stable CBCD, CMP and PT/APTT. On 09/01/21 the patient's EKG revealed normal sinus rhythm at 60 beats per minute c LAE, LVH voltages, normal axis and no repolarization abnormality similar to 11/15/17 EKG. On the AM of the surgery, the patient will take lisinopril with a sip of water. The patient will hold aspirin and ANY NSAID for five (5) days prior to surgery. The patient is currently medically optimized for the above surgery. By the modified RCRI, the patient's 30 day MACE risk is 4%. The patient wishes to assume this risk and proceed with the above surgery. IFG (impaired fasting glucose) mother c T2ID, son Y0GBauu c T1DM; otherwise no DM in 1DR04/14/21 5.7 (85, 8)11/04/20 5.5 (93, 15)12/2019 6 (102, 13)08/2019 6.0; therefore, increased to 1000 XR01/2019 5.9 c ADELINE-IR (96, 14); therefore, + met XR 500 qAM1 5.8 c ADELINE-IR 4 (101, 14)03/2018 6.3; therefore, attempt ADA diet (dc 6 cookies daily)09/2017 6.10/2016 6.06/2014 6.011/2012 5. 6. 6.1January 2011 A1c stable 5.71 8111/2016 10January 2011 CESAR/creatinine of 6 CKD (chronic kidney disease) stage 2, GFR 60-89 ml/min 04/14/21 27/1.3, 5.210/2018 21/1.2, 4. 32/1.2, 5.110/2017 31/1.1, 5.1, 2.211 25/1.2, 4. 27/1.3, 4. stable at 29/1.2hgb as per celiacPTH as per vitamin D Pulmonary nodule low risk patient-no lung cancer in 1DR, non-guzgxk89/2010 CT chest stable R sided nodules (4, 4 and 2 mm) cw 12/2008 CT Elbow arthritis Stable on home PTCon tingency: home ROM, RRprevious L open fracture c repair 1989 Vitamin D deficiency 11/04/20 26, 9, 29; t herefore, + D3 2K01/2019 36, 8.8, 4909/2017 37, 9.1, 341/2015 vitamin D 33, 8.7, PTH 55 on MVI Celiac disease Patient attempting t o maintain gluten-free diet07/2019 - TTG10/2016 - TTG ED (erectile dysfunction) No benefit c C ialis/Viagra/Levitra at maximal dosagesPatient defers surgical/injectible options12/2015 given Viagra 100 QD prn failure AGAIN; changed again to Levitra 20 s benefit06/2015 Levitra 20 trial but refused by Viagra 100 s ANY benefitContingency: buproprion given at least 1/2 problem is decreased libidoWorsened p 07/2013 urethroplasty06/2015 testosterone 54 prolactin 18 Hyperlipidemia Patient takes pravas tatin 80 qAM to remember taking med04/14/21 119/62/59, 86, 0.37/ 102/64/51, <0. 109/62/52 on prava08/2018 116, <0. 125/66/89, 82, <0. 110/65/668/2014 117/72/74, CPK 136 on pravastatin 80 qA lipids 121/59/69March 2010 lipids 105/58/356/ 0.6, 1.110/2018 1.1, 0. 0. 0. 0. TSH 0.5 FH: colon cancer repeat colon 07/2022- W2 2DR c colon cancer and brother c large recurrent aggressive polyp requring colectomy Hypertension Good control on emre n 20 qAMK/Mg as per CKD04/2013 held lisinopril 20 qd while on Rapaflo 8 qd given symptomatic SBPs in lisinopril increased 5 to 20 qd (baseline dose) since off Jaly SB 52 bpm, LVH similar to 03/2008 EKG Next Appt Details ------first AM/afternoon!, BW NOW Reas on: Provider Name:Kike Cowan, 2021-10-13 0 8:15:00 AM, [address], , [place], [address], Insurance Providers Payer Name Payer Address Payer Phone Insured Name Patient Relati onship to Insured Coverage Start Date Coverage End Date MEDICARE Part A and B [address] [place] [id number] [phone] LORETO GEORGE [facility] [address] [address] [facility] [phone] [id number] LORETO GEORGE [id number]
--- OUTSIDE RECORDS SUMMARY | 2021-09-18 06:58 | CCD ---
Author Author [facility] Organization [facility] Address Unknown Phone Unavailable Support Name Relationship Address Phone RE Next Of Kin Unknown Unavailable [facility] Next Of Kin [address] [facility] [address] [place] [address] BELLA GEORGE Next Of Kin [address] [place] [address] SB [facility] Next Of Kin [address] [place] [address] BELLA GEORGE Next Of Kin [address] [place] [address] [address] [place] [address] [facility] Next Of Kin [address] [place] [address] Gloria GEORGE Next Of Kin [address] [place] [address] [address] [place] [address] Bella George [facility] [address] [place] [address] Unavailable Re-disclosure Warning The records that you are about to access may contain information from federally-assisted alcohol or drug abuse programs. If such information is present, then the following federally mandated warning applies: This information has been disclosed to you from records protected by federal confidentiality rules (42 CFR part 2). The federal rules prohibit you from making any further disclosure of this information unless further disclosure is expressly permitted by the written consent of the person to whom it pertains or as otherwise permitted by 42 CFR part 2. A general authorization for the release of medical or other information is NOT sufficient for this purpose. The Federal rules restrict any use of the information to criminally investigate or prosecute any alcohol or drug abuse patient.The records that you are about to access may contain highly sensitive health information, the redisclosure of which is protected by Article 27-F of the [place] State Public Health law. If you continue you may have access to information: Regarding HIV / AIDS; Provided by facilities licensed or operated by the [facility] Office of Mental Health; or Provided by the [facility] Office for People With Developmental Disabilities. If such information is present, then the following [facility] mandated warning applies: This information has been disclosed to you from confidential records which are protected by state law. State law prohibits you from making any further disclosure of this information without the specific written consent of the person to whom it pertains, or as otherwise permitted by law. Any unauthorized further disclosure in violation of state law may result in a fine or skilled nursing sentence or both. A general authorization for the release of medical or other information is NOT sufficient authorization for further disc losure. Family History Family Member Name Family Member Gender Family Member Status Date o f Status Description Data Source(s) Unknown Male Problem MEDENT ([facility]) Unknown Male Problem MED[facility] ([facility] ) Encounters Encounter Providers Location Date Indications Data Source(s ) Unknown [address] [place] [id number] 09/04/2021 12:00:00 AM EDT eCW1 ([facility]) Unknown [address] [facility] [place] [address] 09/04/2021 12:00:00 AM EDT eCW1 ([facility]) Outpatient [address] [facility] [place] [address] 09/01/2021 12:00:00 AM EDT eCW1 ([facility]) Outpatient [address] [facility] [place] [address] 04/22/2021 12:00:00 AM EDT eCW1 ([facility]) Outpatient [address] [facility] [place] [address] 11/07/2020 12:00:00 AM EST eCW1 ([facility]) Immunizations Vaccine Date Status Description Data Source(s) COVID-19 VACCINE Pfizer 08/13/2021 12:00:00 AM EDT completed [facility] Vaccine Series Complete: YESThis Data wa s Submitted to [facility]. COVID-19 VACC, MRNA(PFIZER)/PF 08/13/2021 12:00:00 AM EDT completed [facility] COVID-19 VACCINE Pfizer 12/21/2020 12:00:00 AM EST completed [facility] Vaccine Series Complete: YESThis Data wa s Submitted to [facility]. COVID-19 VACCINE Pfizer 11/30/2020 12:00:00 AM EST completed [facility] Vaccine Series Complete: NOThis Data was Submitted to [facility]. INFLUENZA VACCINE QUADRIVALENT (65 YR UP)/MF59 C.1/PF 09/12/2020 12:00:00 AM EST completed [facility] Medications Medication Brand Name Start Date Product Form Dose Route Admi nistrative Instructions Pharmacy Instructions Status Indications Reaction Description Data Source(s) 240 mcg/0.7 mL 08/28/2021 12:00:00 AM EDT syringe 0 INJECT DIRECTED INJECT DIRECTED SOLD: 08/28/2021 [facility] Cholecalciferol 50 MCG (1999) UNK 11/07/2020 12:00:00 AM ES T 1.0 {capsule} active Cholecalciferol 50 M CG (1999) eCW1 (Formerly [facility]) Insurance Providers Payer name Policy type / Coverage type Policy ID Covered constitution party ID Covered constitution party's relationship to dawkins Policy Dawkins Plan Information [id number] [employer] [id number] DC2 [id number] [employer] (pr) Medigap Part B [id number] Family Dependent [id number] MEDICARE [id number] A ANSI-Commercial [id number] ANSI-Medicare Part B [id number] ANSI-Commercial [id number] ANSI-Commercial [id number] ANSI-Medicare Part B [id number] ANSI-Commercial [id number] ANSI-Commercial [id number] ANSI-Commercial [id number] ANSI-Commercial [id number] ANSI-Medicare Part B [id number] [facility] [id number] WI2 [id number] [facility] [id number] WI2 [id number] MEDICARE [id number] SP [id number] T [employer] [id number] WI2 [id number] [employer] PPO O [id number] S [id number] MEDICARE C [id number] S [id number] A [facility] Medigap Part B [id number] Self [id number] [employer] Medigap Part B [id number] Family Dependent [id number] Medicare [place] Medicare Primary [id number] Self [id number] Medicare [place] Medicare Primary [id number] Self 0 [id number] [employer] [id number] WI2 [id number] MEDICARE [id number] SP [id number] [employer] O [id number] SP [id number] MEDICARE [id number] SP [id number] A MEDICARE [id number] ANSI-Medicare Part B [id number] ANSI-Commercial [id number] Problems, Conditions, and Diagnoses No Information Surgeries/Procedures Procedure Description Date Indications Data Source(s) ECG ROUTINE ECG W/LEAST 12 LDS W/I&R 09/01/2021 12:00: 00 AM EDT eCW1 ([facility]) Results ID Date Data Source INSULIN LEVEL 09/01/2021 12:00:00 AM EDT eCW1 ([facility]) Name Value Range Interpretation Code Description Data Destini rce(s) Supporting Document(s) 9.1 2.6-24.9 INSULIN LEVEL eCW1 (Formerly [facility]) ID Date Data Source VITAMIN B12 LEVEL 09/01/2021 12:00:00 AM EDT eCW1 ([facility]) Name Value Range Interpretation Code Description Data Destini rce(s) Supporting Document(s) 804 [id number] VITAMIN B12 LEVEL eCW1 ([facility]) ID Date Data Source VITAMIN D 25-HYDROXY 09/01/2021 12:00:00 AM EDT eCW1 ([facility]) Name Value Range Interpretation Code Description Data Destini rce(s) Supporting Document(s) 37.8 30.0-100.0 TOTAL 25(OH) VITAMIN D eC W1 (Formerly [facility]) ID Date Data Source [id number] 09/01/2021 12:00:00 AM EDT eCW1 ([facility]) Name Value Range Interpretation Code Description Data Destini rce(s) Supporting Document(s) Microalbumin/Creatinine [Mass Ratio] in Urine 170.0 CREATININE, URINE eCW1 ([facility]) Microalbumin/Creatinine [Ratio] in Urine 7.6 0.0-30.0 CESAR/CREAT RATIO eCW1 ([facility]ly [facility]) Albumin/Creatinine [Mass Ratio] in Urine 13.0 MALB URINE SIEMENS eCW1 (Formerly [facility]) ID Date Data Source PTH INTACT 09/01/2021 12:00:00 AM EDT eCW1 ([facility]) Name Value Range Interpretation Code Description Data Destini rce(s) Supporting Document(s) 51.2 18.5-88.0 PTH INTACT eCW1 ([facility]) ID Date Data Source PT & APTT 09/01/2021 12:00:00 AM EDT eCW1 ([facility]) Name Value Range Interpretation Code Description Data Destini rce(s) Supporting Document(s) 0.96 INR eCW1 ([facility]) 13.2 12.7-14.5 PROTHROMBIN TIME eCW1 ([facility]) 24.5 25.9-37.0 PARTIAL THROMBOPLASTIN TI ME eCW1 ([facility]ly [facility]) ID Date Data Source [id number] 09/01/2021 12:00:00 AM EDT eCW1 ([facility]) Name Value Range Interpretation Code Description Data Destini rce(s) Supporting Document(s) Hemoglobin A1c/Hemoglobin.total in Blood 5.7 HEMOGLOBIN A1c eCW1 ([facility]ly [facility]) ID Date Data Source FERRITIN 09/01/2021 12:00:00 AM EDT eCW1 ([facility]) Name Value Range Interpretation Code Description Data Destini rce(s) Supporting Document(s) 60 26-388 FERRITIN eCW1 ([facility]) ID Date Data Source Comprehensive Metabolic Profile (CMP) 09/01/2021 12:00:00 AM EDT eCW1 ([facility]) Name Value Range Interpretation Code Description Data Destini rce(s) Supporting Document(s) 93 70-100 GLUCOSE, FASTING eCW1 ([facility]) 25 7-18 BLOOD UREA NITROGEN eCW1 ([facility]) 1.30 0.70-1.30 CREATININE FOR GFR eCW1 ([facility]) 57.8 >42 GLOMERULAR FILTRATION RATE eCW 1 ([facility]ly [facility]) 107 98-107 CHLORIDE LEVEL eCW1 ([facility]ly [facility]) 137 136-145 SODIUM LEVEL eCW1 ([facility]) 29 21-32 CARBON DIOXIDE LEVEL eCW1 ([facility]) 4.8 3.5-5.1 POTASSIUM SERUM eCW1 ([facility]) 48 45-117 ALKALINE PHOSPHATASE eCW1 ([facility]) 9.4 8.8-10.2 CALCIUM LEVEL eCW1 ([facility]) 29 12-78 ALT/SGPT eCW1 ([facility]) 19 7-37 AST/SGOT eCW1 ([facility]) 0.2 0.2-1.0 BILIRUBIN,TOTAL eCW1 ([facility]) 1.1 ALBUMIN/GLOBULIN RATIO eCW1 ([facility]) 7.0 6.4-8.2 TOTAL PROTEIN eCW1 ([facility]) 3.7 3.2-5.2 ALBUMIN eCW1 ([facility]) ID Date Data Source CBC with Differential 09/01/2021 12:00:00 AM EDT eCW1 ([facility]) Name Value Range Interpretation Code Description Data Destini rce(s) Supporting Document(s) 14.4 13.5-17.5 HEMOGLOBIN eCW1 ([facility]) 43.8 42.0-52.0 HEMATOCRIT eCW1 ([facility]) 7.0 4.0-10.0 WHITE BLOOD COUNT eCW1 ([facility]) 4.67 4.30-6.10 RED BLOOD COUNT eCW1 ([facility]) 30.8 27.0-33.0 MEAN CORPUSCULAR HEMOGLOB IN eCW1 ([facility]) 93.8 80.0-96.0 MEAN CORPUSCULAR VOLUME e CW1 ([facility]ly [facility]) 32.9 32.0-36.5 MEAN CORPUSCULAR HGB CONC eCW1 ([facility]) 12.5 11.5-14.5 RED CELL DISTRIBUTION WID TH eCW1 ([facility]) 23.7 24.0-44.0 LYMPH % eCW1 ([facility]) 62.4 36.0-66.0 NEUTROPHILS % eCW1 ([facility]) 254 150-450 PLATELET COUNT, AUTOMATED eCW1 ([facility]) 0.7 0.0-1.0 BASO % eCW1 ([facility]) 11.3 2.0-8.0 MONO % eCW1 ([facility]) 1.6 0.0-3.0 EOS % eCW1 ([facility]) 4.4 1.5-8.5 NEUTROPHILS # eCW1 ([facility]) 0.1 0.0-0.5 EOS # eCW1 ([facility]) 0.8 0.0-0.8 MONO # eCW1 ([facility]) 1.7 1.5-5.0 LYMPH # eCW1 ([facility]) 0.1 0.0-0.2 BASO # eCW1 ([facility]) ID Date Data Source NT-PRO BNP 09/01/2021 12:00:00 AM EDT eCW1 ([facility]) Name Value Range Interpretation Code Description Data Destini rce(s) Supporting Document(s) 41 <125 NT-PRO BNP eCW1 ([facility]) Procedure Social History Code Duration Value Status Description Data Source(s ) Smoking 09/01/2021 12:00:00 AM EDT Never Smoker completed Never S moker eCW1 ([facility]) Smoking 09/01/2021 12:00:00 AM EDT Never Smoker completed Never S moker eCW1 ([facility]) Smoking 09/01/2021 12:00:00 AM EDT Never Smoker completed Never S moker eCW1 ([facility]) Smoking 04/22/2021 12:00:00 AM EDT Never Smoker completed Never S moker eCW1 ([facility]) Smoking 11/07/2020 12:00:00 AM EST Never Smoker completed Never S moker eCW1 ([facility]) Vital Signs ID Date Data Source UNK Name Value Range Interpretation Code Description Data Source(s) Body weight 177.6 [lb_av] 177.6 [lb_av] eCW1 ([facility]) Body weight 80.56 kg 80.56 kg W1 ([facility]) Body height 73 [in_i] 73 [in_i] eCW1 ([facility]) Body mass index (BMI) [Ratio] 23.43 kg/m2 23.43 kg/m2 W1 ([facility]) Heart rate 74 /min 74 /min eCW1 ([facility]) Respiratory rate 18 /min 18 /min eCW1 ([facility]) Body temperature 98.2 [degF] 98.2 [degF] eCW1 ( [facility]) Systolic blood pressure 120 mm[Hg] 120 mm[Hg] e CW1 ([facility]) Diastolic blood pressure 68 mm[Hg] 68 mm[Hg] eCW1 ([facility]) Body weight 177 [lb_av] 177 [lb_av] eCW1 ([facility]) Body height 73 [in_i] 73 [in_i] eCW1 ([facility]) Body mass index (BMI) [Ratio] 23.35 kg/m2 23.35 kg/m2 W1 ([facility]) Heart rate 64 /min 64 /min eCW1 ([facility]) Respiratory rate 20 /min 20 /min eCW1 ([facility]) Body temperature 97.7 [degF] 97.7 [degF] eCW1 ( [facility]) Systolic blood pressure 120 mm[Hg] 120 mm[Hg] e CW1 ([facility]) Diastolic blood pressure 72 mm[Hg] 72 mm[Hg] eCW1 ([facility]) Body weight 188.4 [lb_av] 188.4 [lb_av] eCW1 ([facility]) Body height 73 [in_i] 73 [in_i] eCW1 ([facility]) Body mass index (BMI) [Ratio] 24.85 kg/m2 24.85 kg/m2 eCW1 ([facility]) Heart rate 76 /min 76 /min eCW1 ([facility]) Respiratory rate 20 /min 20 /min eCW1 ([facility]) Body temperature 98.3 [degF] 98.3 [degF] eCW1 ( [facility]) Systolic blood pressure 128 mm[Hg] 128 mm[Hg] e CW1 ([facility]) Diastolic blood pressure 82 mm[Hg] 82 mm[Hg] eCW1 (Formerly [facility]) Patient Treatment Plan of Care Planned Activity Planned Date Details Description Data Source (s) Cholecalciferol 50 MCG (1999 [place]) 11/07/2020 12:00:00 AM EST eCW1 (Formerly [facility])
[2021-09-18] MEDS ORDERED: LR 1,000 ML IV SCH (07:00)
[2021-09-18] MEDS ORDERED: DUOVISC (0.50ML VISCOAT/0.85ML PROVISC) OPHTH KIT As Ordered ONE (09:15)
[2021-09-18] MEDS ORDERED: PROVISC 10 MG/ML 0.85ML SYRINGE As Ordered ONE (09:15)
[2021-09-18] MEDS ORDERED: ACETYLCHOLINE OPHTH SOLN 1% 2ML (MIOCHOL-E) As Ordered ONE (09:21)
[2021-09-18 09:55] VITALS: BP 132/66
--- NOTE | 2021-09-18 15:50 | ROOPDOC ---
[facility] Report Of Operation Report of Operation DATE OF PROCEDURE: 09/18/21 PREPROCEDURE DIAGNOSES: Cataract left eye. POSTPROCEDURE DIAGNOSES: Same. PROCEDURE PERFORMED: Cataract extraction with intraocular lens implantation left eye. SURGEON: Papi Albarado MD PRODUCT DEVELOPMENT SCIENTIST: None ANESTHESIA: Local ESTIMATED BLOOD LOSS: None. COMPLICATIONS: None. SPECIMENS REMOVED: None DESCRIPTION OF PROCEDURE: The patient was brought to the operating room and prepped and draped in the usual sterile fashion and an eyelid speculum was inserted in the left eye. A paracentesis was made and the anterior chamber was inflated with non-preserved lidocaine. This was followed by injection of Viscoat. A groove was made in the superotemporal clear cornea which was tunneled forward with the crescent blade and the anterior chamber was entered with a 2.75 keratome. The cystotome was used to make an incision in the center of the capsule and a continuous curvilinear capsulorhexis was created. The lens was hydrodissected until it was found to rotate freely within the capsular bag. Phacoemulsification was then used to remove the lens in its entirety. Irrigation and aspiration were used to remove residual cortical material. Of note, the patient was moving throughout the case. The anterior chamber and capsular bag were reinflated with Provisc and a 16.5 diopter SN60AT lens was injected into the capsular bag using the Davis injector. The lens was dialed into place using the [employer]Par[employer] Picturesey hook. Irrigation and aspiration were used to remove residual viscoelastic. 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 Miochol was injected into the eye and the pupil constricted away from the wound. The wound was checked and found to be watertight and the eye was in an appropriate pressure. The eyelid speculum was removed from the eye and Maxitrol drops were placed over the left eye. The patient was transferred to the recovery room in stable condition and will follow up tomorrow. The total CDE was 9.84. PAPI ALBARADO MD Sep 18, 2021 15:50
== END 2021-09-18 10:01 | disposition home or self-care (01) ==
LOC: M SDC 06:54
PROVIDERS: ATTEND Ophthalmology
DX: H25.12 Age-related nuclear cataract, left eye (principal)
CPT/HCPCS: 66984; A4649; V2632

== ENCOUNTER → 2022-05-25 | Outpatient (CLI) | payer MEDICARE, OTHER ==
[~2022-05-25] MED LIST changes: -CYCLOPENTOLATE 1% OPHTH SOLN 2 ML BTL OS SCH; -DUOVISC (0.50ML VISCOAT/0.85ML PROVISC) OPHTH KIT As Ordered ONE; -FLURBIPROFEN 0.03% OPHTH SOLN 2.5 ML OS SCH; -LIDOCAINE 1% SDV 5ML VIAL As Ordered ONE; -MAXITROL OPHTH SUSP 5 ML As Ordered ONE; -PHENYLEPHRINE 2.5% OPHTH SOL 2ML OS SCH; -TETRACAINE 0.5% OPHTH SOLN 4ML OS SCH; -TOBRADEX OPHTH SUSP 2.5 ML As Ordered ONE
[2022-05-25 08:55] LABS: BASO % 0.5 % (0.0-1.0); EOS # 0.1 10^3/uL (0.0-0.5); EOS % 1.3 % (0.0-3.0); HEMATOCRIT 46.3 % (42.0-52.0); HEMOGLOBIN 15.4 g/dl (13.5-17.5); LYMPH # 1.3 10^3/uL (1.5-5.0); LYMPH % 22.6 % (24.0-44.0); MEAN CORPUSCULAR HEMOGLOBIN 30.9 pg (27.0-33.0); MEAN CORPUSCULAR HGB CONC 33.3 g/dl (32.0-36.5); MEAN CORPUSCULAR VOLUME 92.8 fl (80.0-96.0); MONO # 0.7 10^3/uL (0.0-0.8); MONO % 11.8 % (2.0-8.0); NEUTROPHILS # 3.8 10^3/uL (1.5-8.5); NEUTROPHILS % 63.5 % (36.0-66.0); PLATELET COUNT, AUTOMATED 264 10^3/uL (150-450); RED BLOOD COUNT 4.99 10^6/uL (4.30-6.10); WHITE BLOOD COUNT 5.9 10^3/uL (4.0-10.0)
[2022-05-25 09:52] LABS: CREATININE, URINE 99.5 MG/DL; MALB URINE SIEMENS 6.6 MG/L; MAU/CREAT RATIO 6.6 MCG/MG (0.0-30.0)
[2022-05-25 09:54] LABS: ALT/SGPT 29 U/L (12-78); BILIRUBIN,TOTAL 0.4 MG/DL (0.2-1.0); BLOOD UREA NITROGEN 31 MG/DL (7-18); CALCIUM LEVEL 9.7 MG/DL (8.8-10.2); CARBON DIOXIDE LEVEL 27 MEQ/L (21-32); CHLORIDE LEVEL 108 MEQ/L (98-107); CHOLESTEROL LEVEL 236 MG/DL (<200); CHOLESTEROL RISK RATIO 3.746 (<5); CREATININE FOR GFR 1.32 MG/DL (0.70-1.30); GLOMERULAR FILTRATION RATE 56.6 (>42); GLUCOSE, FASTING 101 MG/DL (70-100); HDL CHOLESTEROL 63 MG/DL (>40); LDL CHOLESTEROL 154 MG/DL (<100); NON-HDL-C 173 MG/DL; POTASSIUM SERUM 5.7 MEQ/L (3.5-5.1); SODIUM LEVEL 138 MEQ/L (136-145); TOTAL PROTEIN 7.2 GM/DL (6.4-8.2); TRIGLYCERIDES LEVEL 94 MG/DL (<150)
[2022-05-27 00:07] LABS: INSULIN LEVEL 15.4 uIU/mL (2.6-24.9)
== END ==
LOC: M LAB 08:18
PROVIDERS: ATTEND Family Medicine
DX: E78.5 Hyperlipidemia, unspecified (principal)
CPT/HCPCS: 36415; 80053; 80061; 82043; 82172; 83010; 83525; 83883; 85025; 86335; G0103

== ENCOUNTER → 2022-11-03 | Outpatient (REF) | payer MEDICARE, OTHER ==
[2022-11-03 13:31] LABS: HEMOGLOBIN A1c 5.5 % (4.0-6.0)
[2022-11-03 13:39] LABS: C REACTIVE PROTEIN QUANTITATIV < 0.40 MG/DL (<1.0)
[2022-11-03 13:41] LABS: ALBUMIN 3.8 G/DL (3.2-5.2); ALKALINE PHOSPHATASE 45 U/L (46-116); ALT/SGPT 16 U/L (7.0-40); AST/SGOT 20 U/L (<34); BILIRUBIN,TOTAL 0.4 MG/DL (0.3-1.2); BLOOD UREA NITROGEN 27 MG/DL (9-23); CALCIUM LEVEL 9.6 MG/DL (8.3-10.6); CARBON DIOXIDE LEVEL 28 MMOL/L (20-31); CHLORIDE LEVEL 105 MMOL/L (98-107); CHOLESTEROL LEVEL 218 MG/DL (<200); CHOLESTEROL RISK RATIO 3.62 (<5); CPK CREATINE PHOSPHOKINASE 86 U/L (46-171); CREATININE FOR GFR 1.16 MG/DL (0.70-1.30); GLOMERULAR FILTRATION RATE > 60.0 (>42); GLUCOSE, FASTING 96 MG/DL (74-106); HDL CHOLESTEROL 60.2 MG/DL (>40); LDL CHOLESTEROL 136.4 MG/DL (<100); NON-HDL-C 158 MG/DL; POTASSIUM SERUM 5.5 MMOL/L (3.5-5.1); PTH INTACT 34.6 PG/ML (18.5-88.0); SODIUM LEVEL 139 MMOL/L (136-145); TOTAL PROTEIN 6.8 G/DL (5.7-8.2); TRIGLYCERIDES LEVEL 107 MG/DL (<150)
[2022-11-03 13:43] LABS: TOTAL 25(OH) VITAMIN D 47.6 NG/ML (20.0-100.0)
[2022-11-04 14:08] LABS: APOLIPOPROTEIN B/A-1 RATIO 0.8 ratio (0.0-0.7); INSULIN LEVEL 13.8 uIU/mL (2.6-24.9)
== END ==
LOC: M SFHCADAM 08:30
PROVIDERS: ATTEND Family Medicine
DX: E78.5 Hyperlipidemia, unspecified (principal); R73.01 Impaired fasting glucose; E55.9 Vitamin D deficiency, unspecified; Z79.899 Other long term (current) drug therapy

== ENCOUNTER → 2023-06-03 | Outpatient (REF) | payer MEDICARE, OTHER | LOC: M SFHCPLAZ 09:52 | PROVIDERS: ATTEND Family Medicine | DX: K76.0 Fatty (change of) liver, not elsewhere classified (principal); R73.01 Impaired fasting glucose; E78.5 Hyperlipidemia, unspecified; E55.9 Vitamin D deficiency, unspecified ==

== ENCOUNTER → 2023-10-04 | Outpatient (REF) | payer MEDICARE, OTHER ==
[2023-10-04 15:08] LABS: BLOOD UREA NITROGEN 27 MG/DL (9-23); CREATININE FOR GFR 1.14 MG/DL (0.70-1.30); GLUCOSE, FASTING 97 MG/DL (74-106)
[2023-10-04 15:09] LABS: ALBUMIN 3.8 G/DL (3.2-5.2); ALKALINE PHOSPHATASE 49 U/L (46-116); ALT/SGPT 28 U/L (7.0-40); AST/SGOT 16 U/L (<34); BILIRUBIN,TOTAL 0.4 MG/DL (0.3-1.2); CALCIUM LEVEL 9.6 MG/DL (8.3-10.6); CARBON DIOXIDE LEVEL 28 MMOL/L (20-31); CHLORIDE LEVEL 105 MMOL/L (98-107); CHOLESTEROL LEVEL 220 MG/DL (<200); GLOMERULAR FILTRATION RATE > 60.0 (>42); POTASSIUM SERUM 5.4 MMOL/L (3.5-5.1); PTH INTACT 31.2 PG/ML (18.5-88.0); SODIUM LEVEL 136 MMOL/L (136-145); TOTAL 25(OH) VITAMIN D 36.1 NG/ML (20.0-100.0); TOTAL PROTEIN 6.7 G/DL (5.7-8.2); TRIGLYCERIDES LEVEL 78 MG/DL (<150)
[2023-10-04 15:45] LABS: HEMOGLOBIN A1c 5.5 % (4.0-6.0)
[2023-10-04 16:34] LABS: CHOLESTEROL RISK RATIO 3.56 (<5); HDL CHOLESTEROL 61.7 MG/DL (>40); LDL CHOLESTEROL 142.7 MG/DL (<100); NON-HDL-C 158.3 MG/DL
== END ==
LOC: M SFHCADAM 08:04
PROVIDERS: ATTEND Family Medicine
DX: K76.0 Fatty (change of) liver, not elsewhere classified (principal); R73.01 Impaired fasting glucose; E78.5 Hyperlipidemia, unspecified; E55.9 Vitamin D deficiency, unspecified

== ENCOUNTER → 2024-03-28 | Outpatient (CLI) | payer MEDICARE, OTHER ==
[2024-03-28 10:03] LABS: BASO % 0.5 % (0.0-1.0); EOS # 0.1 10^3/uL (0.0-0.5); EOS % 0.8 % (0.0-3.0); HEMATOCRIT 42.4 % (42.0-52.0); HEMOGLOBIN 14.1 g/dl (13.5-17.5); LYMPH # 1.6 10^3/uL (1.5-5.0); LYMPH % 19.6 % (24.0-44.0); MEAN CORPUSCULAR HEMOGLOBIN 30.6 pg (27.0-33.0); MEAN CORPUSCULAR HGB CONC 33.3 g/dl (32.0-36.5); MONO # 0.7 10^3/uL (0.0-0.8); MONO % 9.1 % (2.0-8.0); NEUTROPHILS # 5.5 10^3/uL (1.5-8.5); NEUTROPHILS % 69.7 % (36.0-66.0); PLATELET COUNT, AUTOMATED 264 10^3/uL (150-450); RED BLOOD COUNT 4.61 10^6/uL (4.30-6.10); WHITE BLOOD COUNT 7.9 10^3/uL (4.0-10.0)
[2024-03-28 10:16] LABS: HEMOGLOBIN A1c 5.8 % (4.0-6.0)
[2024-03-28 10:33] LABS: PSA SCREENING 0.16 NG/ML (< 4.00)
[2024-03-28 10:34] LABS: CREATININE, URINE 126.4 MG/DL; MAU/CREAT RATIO 2.3 MCG/MG (0.0-30.0)
[2024-03-28 10:37] LABS: THYROID STIMULATING HORMONE 0.905 uIU/ML (0.55-4.78)
[2024-03-28 10:38] LABS: ALBUMIN 3.6 G/DL (3.2-5.2); ALKALINE PHOSPHATASE 44 U/L (46-116); ALT/SGPT 24 U/L (7.0-40); AST/SGOT 13 U/L (<34); BILIRUBIN,TOTAL 0.5 MG/DL (0.3-1.2); BLOOD UREA NITROGEN 28 MG/DL (9-23); CALCIUM LEVEL 9.5 MG/DL (8.3-10.6); CARBON DIOXIDE LEVEL 27 MMOL/L (20-31); CHLORIDE LEVEL 108 MMOL/L (98-107); CHOLESTEROL LEVEL 166 MG/DL (<200); CHOLESTEROL RISK RATIO 2.71 (<5); CREATININE FOR GFR 1.13 MG/DL (0.70-1.30); GLOMERULAR FILTRATION RATE > 60.0 (>42); GLUCOSE, FASTING 99 MG/DL (74-106); HDL CHOLESTEROL 61.1 MG/DL (>40); LDL CHOLESTEROL 82.9 MG/DL (<100); NON-HDL-C 104.9 MG/DL; POTASSIUM SERUM 4.8 MMOL/L (3.5-5.1); SODIUM LEVEL 139 MMOL/L (136-145); TOTAL PROTEIN 6.4 G/DL (5.7-8.2); TRIGLYCERIDES LEVEL 110 MG/DL (<150)
[2024-03-28 10:39] LABS: FERRITIN 54.3 NG/ML (10.5-307.3)
== END ==
LOC: M LAB 08:54
PROVIDERS: ATTEND Family Medicine
DX: R73.01 Impaired fasting glucose (principal); Z12.5 Encounter for screening for malignant neoplasm of prostate; E78.5 Hyperlipidemia, unspecified; K76.0 Fatty (change of) liver, not elsewhere classified
CPT/HCPCS: 36415; 80053; 80061; 82043; 82728; 83036; 84439; 84443; 85025; G0103

== ENCOUNTER → 2024-09-18 | Outpatient (CLI) | payer MEDICARE, OTHER ==
[~2024-09-18] MED LIST changes: +EZET10TA21 PO; +THERTAB52 PO; +VITA200016 PO
[2024-09-18 08:34] LABS: BASO % 0.7 % (0.0-1.0); EOS # 0.1 10^3/uL (0.0-0.5); EOS % 1.4 % (0.0-3.0); HEMATOCRIT 44.9 % (42.0-52.0); HEMOGLOBIN 14.7 g/dl (13.5-17.5); LYMPH # 1.4 10^3/uL (1.5-5.0); LYMPH % 23.7 % (24.0-44.0); MEAN CORPUSCULAR HEMOGLOBIN 30.6 pg (27.0-33.0); MEAN CORPUSCULAR HGB CONC 32.7 g/dl (32.0-36.5); MEAN CORPUSCULAR VOLUME 93.3 fl (80.0-96.0); MONO # 0.7 10^3/uL (0.0-0.8); MONO % 11.2 % (2.0-8.0); NEUTROPHILS # 3.6 10^3/uL (1.5-8.5); NEUTROPHILS % 62.5 % (36.0-66.0); PLATELET COUNT, AUTOMATED 279 10^3/uL (150-450); RED BLOOD COUNT 4.81 10^6/uL (4.30-6.10); WHITE BLOOD COUNT 5.8 10^3/uL (4.0-10.0)
[2024-09-18 08:47] LABS: HEMOGLOBIN A1c 5.8 % (4.0-6.0)
[2024-09-18 08:58] LABS: ALBUMIN 3.7 G/DL (3.2-5.2); ALKALINE PHOSPHATASE 49 U/L (40-129); ALT/SGPT 21 U/L (7.0-40); AST/SGOT 12 U/L (<34); BILIRUBIN,TOTAL 0.5 MG/DL (0.3-1.2); BLOOD UREA NITROGEN 25 MG/DL (9-23); CALCIUM LEVEL 9.9 MG/DL (8.3-10.6); CARBON DIOXIDE LEVEL 28 MMOL/L (20-31); CHLORIDE LEVEL 106 MMOL/L (98-107); CHOLESTEROL LEVEL 203 MG/DL (<200); CHOLESTEROL RISK RATIO 3.11 (<5); CREATININE FOR GFR 1.23 MG/DL (0.70-1.30); GLOMERULAR FILTRATION RATE > 60.0 (>42); GLUCOSE, FASTING 98 MG/DL (74-106); HDL CHOLESTEROL 65.2 MG/DL (>40); LDL CHOLESTEROL 115.2 MG/DL (<100); NON-HDL-C 137.8 MG/DL; POTASSIUM SERUM 5.1 MMOL/L (3.5-5.1); SODIUM LEVEL 138 MMOL/L (136-145); TRIGLYCERIDES LEVEL 113 MG/DL (<150)
[2024-09-18 08:59] LABS: FERRITIN 46.9 NG/ML (10.5-307.3)
== END ==
LOC: M LAB 07:25
PROVIDERS: ATTEND Family Medicine
DX: R73.01 Impaired fasting glucose (principal); K76.0 Fatty (change of) liver, not elsewhere classified; E78.5 Hyperlipidemia, unspecified

== ENCOUNTER 2024-09-25 10:21 | Day surgery (SDC) | payer MEDICARE, OTHER ==
[~2024-09-25] VITALS: Ht 185.4 cm; Wt 80.2 kg
[2024-09-25] MEDS ORDERED: propofoL 200 MG/20 ML VIAL As Ordered ONE (11:37)
[2024-09-25] MEDS ORDERED: fentaNYL 100 MCG/2 ML INJECTION As Ordered ONE (11:45)
[2024-09-25] MEDS ORDERED: ePHEDrine SULFATE 25 MG/5 ML(5MG/ML) SYRINGE As Ordered ONE (11:56)
[2024-09-25 12:20] VITALS: TEMP 97.3
[2024-09-25 12:42] VITALS: BP 101/61; O2SAT 95
== END 2024-09-25 12:43 | disposition home or self-care (01) ==
LOC: M OPP 10:21
PROVIDERS: ATTEND Internal Medicine Gastroenterology
DX: D12.2 Benign neoplasm of ascending colon (principal); K64.0 First degree hemorrhoids; K57.30 Diverticulosis of large intestine without perforation or abscess without bleeding; K90.0 Celiac disease; K31.89 Other diseases of stomach and duodenum; I10 Essential (primary) hypertension; E78.5 Hyperlipidemia, unspecified; E11.9 Type 2 diabetes mellitus without complications; M19.90 Unspecified osteoarthritis, unspecified site; Z88.0 Allergy status to penicillin; Z79.82 Long term (current) use of aspirin; Z79.84 Long term (current) use of oral hypoglycemic drugs; Z79.899 Other long term (current) drug therapy
CPT/HCPCS: 43239; 45385; 88305; J3010

== ENCOUNTER → 2025-02-12 | Outpatient (CLI) | payer MEDICARE, OTHER ==
[2025-02-12 09:22] LABS: BASO % 0.3 % (0.0-1.0); EOS # 0.1 10^3/uL (0.0-0.5); EOS % 1.2 % (0.0-3.0); HEMATOCRIT 43.6 % (42.0-52.0); HEMOGLOBIN 14.4 g/dl (13.5-17.5); LYMPH # 1.5 10^3/uL (1.5-5.0); LYMPH % 21.7 % (24.0-44.0); MEAN CORPUSCULAR HEMOGLOBIN 30.1 pg (27.0-33.0); MONO # 0.8 10^3/uL (0.0-0.8); MONO % 11.1 % (2.0-8.0); NEUTROPHILS # 4.5 10^3/uL (1.5-8.5); NEUTROPHILS % 65.4 % (36.0-66.0); PLATELET COUNT, AUTOMATED 263 10^3/uL (150-450); RED BLOOD COUNT 4.79 10^6/uL (4.30-6.10); WHITE BLOOD COUNT 6.9 10^3/uL (4.0-10.0)
[2025-02-12 09:39] LABS: HEMOGLOBIN A1c 5.4 % (4.0-6.0)
[2025-02-12 09:45] LABS: ALBUMIN 3.7 G/DL (3.2-5.2); BILIRUBIN,TOTAL 0.4 MG/DL (0.3-1.2); CALCIUM LEVEL 9.4 MG/DL (8.3-10.6); CREATININE FOR GFR 1.19 MG/DL (0.70-1.30); GLOMERULAR FILTRATION RATE 63.3 (>42); POTASSIUM SERUM 4.9 MMOL/L (3.5-5.1); TOTAL PROTEIN 6.7 G/DL (5.7-8.2)
[2025-02-12 09:46] LABS: PSA SCREENING 0.19 NG/ML (< 4.00)
[2025-02-12 09:50] LABS: FERRITIN 50.7 NG/ML (10.5-307.3); TOTAL 25(OH) VITAMIN D 51.3 NG/ML (20.0-100.0)
== END ==
LOC: M LAB 08:27
PROVIDERS: ATTEND Family Medicine
DX: K76.0 Fatty (change of) liver, not elsewhere classified (principal); R73.01 Impaired fasting glucose; Z12.5 Encounter for screening for malignant neoplasm of prostate; E55.9 Vitamin D deficiency, unspecified
CPT/HCPCS: 36415; 80053; 82306; 82728; 83036; 83970; 85025; G0103

== ENCOUNTER 2025-05-25 13:26 | Emergency (ER) | payer MEDICARE, OTHER ==
[~2025-05-25] VITALS: Ht 182.9 cm; Wt 83.1 kg
[~2025-05-25 13:26] MED LIST changes: -PRAV80TA2 PO; +PRAV80TA75 PO
[2025-05-25] MEDS: BOOSTRIX VACCINE (TETANUS/DIPHTH/ACEL. PERTUSSIS) 0.5 ML SYR IM.IMMUN ONE (13:49)
[2025-05-25] MEDS: ceFAZolin SOD 1 GM in DEXTROSE 5% (D5W) ADV/MINI-BAG 50 ML IV ONE (13:50)
[2025-05-25 14:00] LABS: PLATELET COUNT, AUTOMATED 268 10^3/uL (150-450)
[2025-05-25 14:08] VITALS: TEMP 97.3
[2025-05-25 14:22] LABS: CALCIUM LEVEL 9.3 MG/DL (8.3-10.6); CARBON DIOXIDE LEVEL 23.0 MMOL/L (20-31); CHLORIDE LEVEL 104.0 MMOL/L (98-107); CREATININE FOR GFR 1.49 MG/DL (0.70-1.30); GLOMERULAR FILTRATION RATE 48.3 (>42); POTASSIUM SERUM 5.1 MMOL/L (3.5-5.1); SODIUM LEVEL 140.0 MMOL/L (136-145)
[2025-05-25] MEDS: LIDOCAINE 1% MDV 20 ML VIAL SC ONE (16:15)
[2025-05-25 16:30] VITALS: BP 163/89
[2025-05-25 17:15] VITALS: O2SAT 95
[2025-05-25] MEDS ORDERED: CEPH500C PO (17:36)
[2025-05-25] MEDS ORDERED: PERC5TAB12 PO (17:36)
== END 2025-05-25 17:52 | disposition home or self-care (01) ==
LOC: EDBD 13:26 → M ED 13:26
DX: S62.627B Displaced fracture of middle phalanx of left little finger, initial encounter for open fracture (principal); S62.615B Displaced fracture of proximal phalanx of left ring finger, initial encounter for open fracture; W31.2XXA Contact with powered woodworking and forming machines, initial encounter; I10 Essential (primary) hypertension; N18.30 Chronic kidney disease, stage 3 unspecified; E78.5 Hyperlipidemia, unspecified; N40.0 Benign prostatic hyperplasia without lower urinary tract symptoms; Y92.009 Unspecified place in unspecified non-institutional (private) residence as the place of occurrence of the external cause; Y93.89 Activity, other specified; Y99.9 Unspecified external cause status; Z23 Encounter for immunization; Z88.0 Allergy status to penicillin; Z79.82 Long term (current) use of aspirin; Z79.899 Other long term (current) drug therapy; Z79.2 Long term (current) use of antibiotics
CPT/HCPCS: 73130; 80048; 85027; 90471; 90715; 93041; 96365; 96366; 96375; 99285; J0690; J3010

== ENCOUNTER 2025-05-30 11:39 | Day surgery (SDC) | payer MEDICARE, OTHER ==
[~2025-05-30] VITALS: Ht 182.9 cm; Wt 80.4 kg
[~2025-05-30 11:39] MED LIST changes: +CEPH500C PO; +PERC5TAB12 PO
[2025-05-30] MEDS ORDERED: LR 1,000 ML IV SCH (11:45)
[2025-05-30] MEDS: ceFAZolin SOD 2 GM IV ONCE IV ONE (13:45)
[2025-05-30] MEDS: LIDOCAINE 1% SDV 30 ML VIAL As Ordered ONE (15:30)
[2025-05-30] MEDS ORDERED: ACETAMINOPHEN 1000MG/100ML IV BAG As Ordered ONE (15:30)
[2025-05-30] MEDS ORDERED: DESFLURANE 240 ML INHALANT As Ordered ONE (15:34)
[2025-05-30] MEDS ORDERED: PERCOCET PO (15:51)
[2025-05-30] MEDS: HYDROMORPHONE HCL 0.5 MG/0.5 ML SYRINGE IV PRN (16:00)
[2025-05-30] MEDS: ONDANSETRON 4MG 2ML VIAL IV PRN (16:00)
[2025-05-30 17:25] VITALS: BP 163/79; TEMP 97.7; O2SAT 97
== END 2025-05-30 17:33 | disposition home or self-care (01) ==
LOC: M SDC 11:39
PROVIDERS: ATTEND Orthopaedic Surgery Hand Surgery
DX: S61.215A Laceration without foreign body of left ring finger without damage to nail, initial encounter (principal); S61.207A Unspecified open wound of left little finger without damage to nail, initial encounter; S67.196A Crushing injury of right little finger, initial encounter; S67.195A Crushing injury of left ring finger, initial encounter; S62.617B Displaced fracture of proximal phalanx of left little finger, initial encounter for open fracture; S62.615B Displaced fracture of proximal phalanx of left ring finger, initial encounter for open fracture; S66.307A Unspecified injury of extensor muscle, fascia and tendon of left little finger at wrist and hand level, initial encounter; W31.2XXA Contact with powered woodworking and forming machines, initial encounter; Y92.89 Other specified places as the place of occurrence of the external cause; Y93.9 Activity, unspecified; Y99.9 Unspecified external cause status; E11.9 Type 2 diabetes mellitus without complications; I10 Essential (primary) hypertension; E78.5 Hyperlipidemia, unspecified; Z79.84 Long term (current) use of oral hypoglycemic drugs; Z79.899 Other long term (current) drug therapy; Z88.0 Allergy status to penicillin
CPT/HCPCS: 26418; 26735; 76000; C1713; J0131; J0690; J1171; J2405; J3010

== ENCOUNTER → 2025-06-12 | Outpatient (CLI) | payer MEDICARE, OTHER ==
[~2025-06-12] MED LIST changes: +PERCOCET PO
== END ==
LOC: M SOG 10:12
PROVIDERS: ATTEND Physician Assistant
DX: S62.615A Displaced fracture of proximal phalanx of left ring finger, initial encounter for closed fracture (principal); S62.637A Displaced fracture of distal phalanx of left little finger, initial encounter for closed fracture; W18.30XA Fall on same level, unspecified, initial encounter; Y92.009 Unspecified place in unspecified non-institutional (private) residence as the place of occurrence of the external cause

== ENCOUNTER → 2025-06-29 | Outpatient (CLI) | payer MEDICARE, OTHER | LOC: M SOG 07:09 | PROVIDERS: ATTEND Physician Assistant | DX: S62.615A Displaced fracture of proximal phalanx of left ring finger, initial encounter for closed fracture (principal); S62.637A Displaced fracture of distal phalanx of left little finger, initial encounter for closed fracture; W18.30XA Fall on same level, unspecified, initial encounter; Y92.009 Unspecified place in unspecified non-institutional (private) residence as the place of occurrence of the external cause ==

== ENCOUNTER → 2025-08-07 | Outpatient (CLI) | payer MEDICARE, OTHER ==
[~2025-08-07] MED LIST changes: -EZET10TA21 PO; +EZET10TA57 PO
== END ==
LOC: M SOG 07:27
PROVIDERS: ATTEND Physician Assistant
DX: S62.615D Displaced fracture of proximal phalanx of left ring finger, subsequent encounter for fracture with routine healing (principal); S62.637D Displaced fracture of distal phalanx of left little finger, subsequent encounter for fracture with routine healing

== ENCOUNTER → 2025-08-14 | Outpatient (CLI) | payer MEDICARE, OTHER ==
[2025-08-14 14:59] LABS: BASO # 0.0 10^3/uL (0.0-0.2); BASO % 0.5 % (0.0-1.0); EOS # 0.1 10^3/uL (0.0-0.5); EOS % 1.1 % (0.0-3.0); LYMPH # 1.7 10^3/uL (1.5-5.0); LYMPH % 20.2 % (24.0-44.0); MONO # 0.9 10^3/uL (0.0-0.8); MONO % 10.4 % (2.0-8.0); NEUTROPHILS # 5.6 10^3/uL (1.5-8.5); NEUTROPHILS % 67.3 % (36.0-66.0); PLATELET COUNT, AUTOMATED 305 10^3/uL (150-450)
[2025-08-14 15:07] LABS: ALT/SGPT 25.0 U/L (7.0-40); AST/SGOT 17.0 U/L (<34); CALCIUM LEVEL 9.3 MG/DL (8.3-10.6); CARBON DIOXIDE LEVEL 26.0 MMOL/L (20-31); CHLORIDE LEVEL 105.0 MMOL/L (98-107); CHOLESTEROL LEVEL 196.0 MG/DL (<200); CHOLESTEROL RISK RATIO 3.13 (<5); CREATININE FOR GFR 1.16 MG/DL (0.70-1.30); GLOMERULAR FILTRATION RATE 65.3 (>42); LDL CHOLESTEROL 118.1 MG/DL (<100); NON-HDL-C 133.5 MG/DL; POTASSIUM SERUM 5.0 MMOL/L (3.5-5.1); PSA SCREENING 1.02 NG/ML (< 4.00); PTH INTACT 27.6 PG/ML (18.5-88.0); SODIUM LEVEL 139.0 MMOL/L (136-145); TRIGLYCERIDES LEVEL 77.0 MG/DL (<150)
[2025-08-14 15:09] LABS: TOTAL 25(OH) VITAMIN D 49.7 NG/ML (20.0-100.0)
[2025-08-14 15:24] LABS: ESTIMATED AVERAGE GLUCOSE 120.0 MG/DL (60-110)
== END ==
LOC: M LABDRWAD 10:02
PROVIDERS: ATTEND Family Medicine
DX: K76.0 Fatty (change of) liver, not elsewhere classified (principal); R73.01 Impaired fasting glucose; K90.0 Celiac disease; E78.5 Hyperlipidemia, unspecified; Z12.5 Encounter for screening for malignant neoplasm of prostate; R73.03 Prediabetes; E55.9 Vitamin D deficiency, unspecified
CPT/HCPCS: 36415; 80053; 80061; 82306; 82728; 83036; 83970; 85025; 86364; G0103

== ENCOUNTER → 2025-08-27 | Outpatient (REF) | payer MEDICARE, OTHER | LOC: M SFHCPLAZ 09:48 | PROVIDERS: ATTEND Family Medicine | DX: Z53.9 Procedure and treatment not carried out, unspecified reason (principal) ==